=== PATIENT | female | born 1955 | race Caucasian/White ===

== ENCOUNTER 2019-08-24 22:51 | Inpatient (IN) ==
--- NOTE | 2019-08-24 23:06 | PROVIDER DOCUMENTATION ---
HPI-General Adult - General Chief Complaint: Seizure Stated Complaint: seizure like activity Time Seen by Provider: 08/24/19 23:00 Source: patient Allergies/Adverse Reactions: Patient Allergies Allergy/AdvReac Type Severity Reaction Status Date / Time No Known Allergies Allergy Verified 08/24/19 22:50 Home Medications: Home Medication List Medication Instructions Recorded Confirmed Last Taken Type Amlodipine [Norvasc] 5 mg PO DAILY 06/22/19 08/25/19 Unknown History Clopidogrel [Plavix] 75 mg PO DAILY 06/22/19 08/25/19 Unknown History Levothyroxine [Synthroid] 150 mcg PO DAILY 06/22/19 08/25/19 Unknown History - History of Present Illness -Gen Adult Nature of Presenting Problems: 64 YOF PRESENTS VIA EMS CALLED BY FAMILY FOR AN EPISODE OF UNRESPONSIVENESS LASTING APROX 1 MINUTE. SHE REPORTS THAT SHE HAS HAD N/V, ABDOMINAL CRAMPING, FEVER (100.4 AT HOME) SINCE YESTERDAY AND WEAKNESS TODAY. SHE IS ALERT AND ORIENTED ON EXAM, BUT DOES APPEAR LIKE SHE FEELS UNWELL. SHE DENIES CP, SOB, DIARRHEA. Location of Pain/Injury: reports: abdomen Pain Radiation: reports: no radiation Quality of Pain: reports: cramping Severity: reports: moderate Onset/Duration: reports: 24 hours ago Timing: reports: still present Context/Activities at Onset: reports: none Modifying Factors: improves with: nothing Associated Symptoms: reports: fever/chills, nausea, vomiting, weakness Similar Symptoms Previously?: No Recently seen or treated by another doctor?: No Review of Systems - Adult - REVIEW OF SYSTEMS - ADULT Constitutional: reports: see HPI, fever, fatique. denies: no symptoms reported, chills, night sweats, weight gain, weight loss, other Eyes: reports: no symptoms reported. denies: see HPI, discharge, dry eyes, decreased vision, blurred vision, double vision, eye pain, redness, other Ears, Nose, Mouth & Throat: reports: no symptoms reported. denies: see HPI, ear discharge, ear pain, hearing loss, tinnitus, epistaxis, sinus problem, nose pain, loose teeth, mouth/dental pain, mouth swelling, hoarseness, throat pain, throat swelling, other Cardiovascular: reports: no symptoms reported. denies: see HPI, chest pain, edema, heart murmur, irregular heart rate, orthopnea, palpitations, poor circulation, PND, syncope, other Respiratory: reports: no symptoms reported. denies: see HPI, chronic cough, cough, dyspnea on exertion, excessive sputum production, hemoptysis, pleurisy, shortness of breath, wheezing, other Gastrointestinal: reports: abdominal pain, constipation, nausea, vomiting. denies: no symptoms reported, see HPI, hematemesis, diarrhea, difficulty swallowing, frequent heartburn, poor appetite, rectal bleeding, other Genitourinary: reports: no symptoms reported. denies: see HPI, dysuria, discharge, frequency, flank pain, frequent UTI's, hematuria, hesitency, incontinence, urinary retention, urgency, other Musculoskeletal: reports: muscle weakness (GENERALZED). denies: no symptoms re ported, see HPI, bone pain, back pain, frequent leg cramps, joint pain, joint swelling, muscle aches, neck pain, other Integumentary: reports: no symptoms reported. denies: see HPI, hives, hair loss, itching, mole changes, nail changes, rash, skin sores/ulcer, skin thickeni ng, other Neurological: reports: no symptoms reported. denies: see HPI, ataxia, dizziness/vertigo, headache/migraines, loss of balance, numbness, paresthesia, seizure, slurred speech, syncope, tremors, other Psychiatric: reports: no symptoms reported. denies: see HPI, anxiety, anti- depressant use, alcohol/drug dependence, depression, emotional problems, insomnia, panic attacks, suicidal thoughts, other Endocrine: reports: no symptoms reported. denies: see HPI, change in skin pigment, excessive sweating, goiter, cold intolerance, heat intolerance, increased hunger, increased thirst, polyuria, other Hematologic/Lymphatic: reports: no symptoms reported. denies: see HPI, blood clots, easy bruising, low blood count, lymphedema, prolonged bleeding, swollen lymph nodes, transfusions, other Allergic/Immunologic: reports: no symptoms reported. denies: see HPI, allergic reactions, allergic rhinitis, asthma, eczema, food allergy, frequent infections, hay fever, hives, positive PPD, urticaria, other Past History - Adult - PAST MEDICAL HISTORY-ADULT Review of Records: reports: Nursing Assessment Review, Social history reviewed & non-contributory. Major Childhood Illnesses: reports: denies history Cardiovascular: reports: HTN, hyperlipidemia Respiratory: reports: denies history Gastrointestinal: reports: denies history Obstetrical/Gynecological: reports: denies history Genitourinary: reports: denies history Musculoskeletal: reports: denies history Neurological: reports: CVA Endocrine/Immune: reports: thyroid disorder Other Conditions: reports: denies history - PRIOR SURGERIES/PROCEDURES Surgical/Procedure History: reports: appendectomy Physical Exam-General - PHYSICAL EXAM-ADULT Initial Vital Signs Reviewed: Yes - CONSTITUTIONAL General Appearance: alert, no apparent distress - EYES Eyes: PERRL/EOMI, pink conjunctivae - HEAD, EARS, NOSE, MOUTH & THROAT HENMT: normocephalic/atraumatic, moist mucous membranes, normal ENT inspection - NECK Neck: non-tender, full range of motion, supple - RESPIRATORY Respiratory: chest non-tender, lungs clear, normal breath sounds, no pleuratic chest pain, no respiratory distress, no accessory muscle use - CARDIOVASCULAR Cardiovascular: normal peripheral pulses, no edema, no gallop, tachycardia - GASTROINTESTINAL (ABDOMEN) Abdominal Exam: normal bowel sounds, non tender, soft - LYMPHATIC Lymphatic: no adenopathy - MUSCULOSKELETAL Back Exam: normal inspection, no CVA tenderness, no vertebral tenderness Extremity: normal range of motion, non-tender. negative: normal gait (UNSTEADY) - SKIN Integumentary: normal color, normal turgor, warm/dry - NEUROLOGIC Neurologic: grossly normal - PSYCHIATRIC Psych/Mental Status: normal mood/affect, oriented x 3 Progress - PLAN OF CARE/RESULTS Progress/Plan/Lab Results: Vital Signs - 8 hr 08/24/19 22:44 Temperature 98.2 F Pulse Rate 114 H Respiratory Rate 20 Blood Pressure 149/53 O2 Sat by Pulse Oximetry 92 L Orders Category Date Time Status Finger Stick Blood Sugar (ED) DIRECTED Care 08/24/19 22:[address] HEAD W/O CONTRAST [CT] Stat Exams 08/24/19 22:53 Ordered cxr [CHEST-PORTABLE] [RAD] Stat Exams 08/24/19 22:54 Ordered CBC WITH ELECTRONIC DIFF [HEME] Stat Lab 08/24/19 22:52 Uncollected COMPREHENSIVE METABOLIC PANEL [CHEM] Stat Lab 08/24/19 22:52 Uncollected PT [PROTIME WITH INR] [COAG] Stat Lab 08/24/19 22:52 Uncollected PTT [COAG] Stat Lab 08/24/19 22:52 Uncollected UA NIMS W/REFLEX CULT [URINALYSIS] Stat Lab 08/24/19 22:52 Uncollected URINE DRUG SCREEN PL Stat Lab 08/24/19 22:52 Uncollected Result Diagrams: 08/25/19 02:15 08/24/19 23:15 - CT/MRI 1 CT Study: Abdomen, Pelvis CT Results: inflammatory change around sigmoid c/w diverticulitis,cystic lesions also 2 CT Study: Head CT Results: NAD - CONSULTS/PCP/HOSPITALIST Notification #1 *Consult/PCP/Hospitalist*: Dr. Pedroza, surgeon Time Discussed: 02:40 Reason/Comments: recommend admit to hospitalist at [facility] with surgical consultation #2 Consult: Dr Rushing,hospitalist Time Discussed: 02:50 Reason/Comments: recommend transfer to [facility] hospitalist service #3 Consult: Dr. Carodso Time Discussed: 02:45 Reason/Comments: transfer to [facility] if Dr Rushing recommends,accepts patient Consult Disposition: Admit Departure - Departure Date of Disposition Decision: 08/25/19 Time of Disposition Decision: 03:04 DIAGNOSIS: Abnormal abdominal CT scan, Observed seizure-like activity Leukocytosis Qualifiers: Leukocytosis type: unspecified Qualified Code(s): D72.829 - Elevated white blood cell count, unspecified Abdominal pain Qualifiers: Abdominal location: lower abdomen, unspecified Qualified Code(s): R10.30 - Lower abdominal pain, unspecified Disposition: ADMITTED INPATIENT 09 Certified Medical Emergency: Emergent Condition: Stable - Critical Care Note This patient required my direct & personal management of CC.: No Attestation - Physician/ PARTH Attestation Patient care was provided by Advanced Practice Provider:: Yes Advanced Practice Provider documentation review:: The Mid-level provider documentation, treatment plan and medical decision making was reviewed by the physician who agrees with all treatment and medical decision making by the P. The physician spent face to face time with patient:: Yes Advanced Practice Provider documentation review:: Supervising physician onsite and consulted in the evaluation and care of this patient. The physician did have a face to face encounter with the patient.
[2019-08-24 23:35] LABS: BASO# 0.04 X1000 (0.0-0.2); BASO% 0.1 % (0.0-0.8); EOS# 0.02 X1000 (0.0-0.7); EOS% 0.1 % (0.0-10.0); HEMOGLOBIN 11.9 g/dL (12.0-16.0); IMM GRAN# 0.25 X1000 (0.0-0.04); IMM GRAN% 0.8 % (0.0-0.5); LYMPH# 0.96 X1000 (1.2-3.4); MCH 27.2 PG (27-31); MCHC 32.2 g/dL (33-37); MCV 84.5 FL (81-99); MONO# 2.08 X1000 (0.11-0.59); MONO% 6.5 % (1.7-9.3); MPV 10.5 FL (7.4-10.4); NEUT# 28.54 X1000 (1.4-6.5); NEUT% 89.5 % (42.2-75.2); PLT 451 X1000 (130-400); RBC 4.38 XMIL (4.2-5.4); RDW 13.7 % (11.5-14.5); WBC 31.89 X1000 (4.8-10.8)
[2019-08-24 23:40] LABS: INR 0.95; PROTIME 13.2 Seconds (11.0-16.0)
[2019-08-24 23:41] LABS: PTT 31.7 Seconds (22.3-41.8)
[2019-08-24 23:43] LABS: AGAP 16; ALBUMIN 3.4 g/dL (3.5-5.0); ALKALINE PHOSPHATASE 110 U/L (32-104); BUN 18 mg/dL (8-22); CALCIUM 8.9 mg/dL (8.8-10.2); CHLORIDE 101 mmol/L (98-107); COSMO 280; CREATININE 0.8 mg/dL (0.5-0.9); ESTIMATED GFR > 60; GLUCOSE 176 mg/dL (70-104); GOT 16 U/L (10-30); GPT 10 U/L (10-36); SODIUM 137 mmol/L (136-145); TCO2 21 mmol/L (25-35); TOTAL PROTEIN 7.4 g/dL (6.3-8.3)
[2019-08-24] MEDS ORDERED: VANCOMYCIN 1 GM/NS 1 GM/250 ML IVPB IV ONE (23:49)
[2019-08-24] MEDS ORDERED: ZOSYN 3.375 GM in NS 50 ML IV ONE (23:49)
[2019-08-25 00:48] LABS: URINE SOURCE CLEAN CATCH
[2019-08-25 00:54] LABS: BILIRUBIN URINE NEGATIVE (NEGATIVE); BLOOD URINE NEGATIVE (NEGATIVE); COLOR YELLOW; GLUCOSE URINE NEGATIVE (NEGATIVE); KETONE URINE NEGATIVE (NEGATIVE); LEUKOCYTES URINE NEGATIVE (NEGATIVE); NITRITE URINE NEGATIVE (NEGATIVE); PH URINE 5.5; PROTEIN URINE TRACE mg/dL (NEGATIVE); SP GRAVITY URINE 1.022; TURBIDITY URINE CLEAR (CLEAR); UR EPITHELIAL CELLS <10 /HPF (<10); URINE BACTERIA NEGATIVE /HPF; URINE RBC <10 /HPF (<10); URINE WBC <10 /HPF (<10); UROBILINOGEN URINE NORMAL (NORMAL)
[2019-08-25 01:07] LABS: MAGNESIUM 1.4 mg/dL (1.5-2.7)
[2019-08-25 01:08] LABS: UR AMPHETAMINES QUAL NONE DETECTED (NONE DETECT); UR BARBITUATES QUAL NONE DETECTED (NONE DETECT); UR BENZODIAZEPIN QUAL NONE DETECTED (NONE DETECT); UR CANNABINOIDS QUAL NONE DETECTED (NONE DETECT); UR COCAINE QUAL NONE DETECTED (NONE DETECT); UR METHADONE QUAL NONE DETECTED (NONE DETECT); UR METHAMPHETAMINE QUAL NONE DETECTED (NONE DETECT); UR OPIATES QUAL NONE DETECTED (NONE DETECT); UR OXYCODONE QUAL NONE DETECTED (NONE DETECT); UR PCP QUAL NONE DETECTED (NONE DETECT); UR PROPOXYPHENE QUAL NONE DETECTED (NONE DETECT); UR TCA QUAL NONE DETECTED (NONE DETECT)
[2019-08-25 01:24] LABS: INFLUENZA A NEGATIVE (NEGATIVE); INFLUENZA B NEGATIVE (NEGATIVE)
[2019-08-25 01:35] LABS: BASO# 0.03 X1000 (0.0-0.2); BASO% 0.1 % (0.0-0.8); EOS# 0.01 X1000 (0.0-0.7); HEMATOCRIT 33.6 % (37.0-47.0); HEMOGLOBIN 10.7 g/dL (12.0-16.0); IMM GRAN# 0.25 X1000 (0.0-0.04); IMM GRAN% 0.8 % (0.0-0.5); LYMPH# 1.08 X1000 (1.2-3.4); LYMPH% 3.3 % (20.5-51.1); MCHC 31.8 g/dL (33-37); MCV 84.6 FL (81-99); MONO# 2.35 X1000 (0.11-0.59); MONO% 7.2 % (1.7-9.3); MPV 10.1 FL (7.4-10.4); NEUT# 28.93 X1000 (1.4-6.5); NEUT% 88.6 % (42.2-75.2); PLT 396 X1000 (130-400); RBC 3.97 XMIL (4.2-5.4); RDW 13.6 % (11.5-14.5); WBC 32.65 X1000 (4.8-10.8)
[2019-08-25 02:47] LABS: BASO# 0.03 X1000 (0.0-0.2); BASO% 0.1 % (0.0-0.8); EOS# 0.01 X1000 (0.0-0.7); HEMATOCRIT 34.3 % (37.0-47.0); IMM GRAN# 0.25 X1000 (0.0-0.04); IMM GRAN% 0.8 % (0.0-0.5); LYMPH# 1.09 X1000 (1.2-3.4); LYMPH% 3.4 % (20.5-51.1); MCH 27.1 PG (27-31); MCHC 32.1 g/dL (33-37); MCV 84.5 FL (81-99); MONO# 2.27 X1000 (0.11-0.59); MPV 10.4 FL (7.4-10.4); NEUT# 28.87 X1000 (1.4-6.5); NEUT% 88.7 % (42.2-75.2); PLT 400 X1000 (130-400); RBC 4.06 XMIL (4.2-5.4); RDW 13.7 % (11.5-14.5); WBC 32.52 X1000 (4.8-10.8)
[2019-08-25] MEDS ORDERED: NS 1,000 ML IV ONE (03:04)
[2019-08-25] MEDS ORDERED: VANCOMYCIN IV PER PHARMACY MISC SCH (03:15)
[2019-08-25] MEDS: ZOSYN 3.375 GM in NS 50 ML IV SCH ×3 (05:36→17:49)
[2019-08-25] MEDS ORDERED: VANCOMYCIN 2,150 MG in NS 500 ML IV ONE (06:00)
[2019-08-25] MEDS ORDERED: VANCOMYCIN 1,150 MG in NS 250 ML IV ONE (06:03)
--- NOTE | 2019-08-25 06:07 | Diag Imaging Result Doc PS360 ---
EXAM: CHEST-PORTABLE HISTORY: LOW SATS TECHNIQUE: Single view COMPARISON: 08/01/2018 FINDINGS: The lungs are well expanded. The heart is not enlarged. The vessels are not distended. There are no infiltrates. No effusion identified. IMPRESSION: Negative exam. Electronically signed by Carroll Escobedo 08/25/2019 6:04 AM
--- NOTE | 2019-08-25 07:40 | Diag Imaging Result Doc PS360 ---
EXAM: CT HEAD W/O CONTRAST HISTORY: SEIZURE, EPISODE OF UNRESPONSIVENESS TECHNIQUE: CT head without contrast COMPARISON: 08/02/2018 FINDINGS: No parenchymal hemorrhage. No epidural or subdural hematoma. No subarachnoid hemorrhage. Mild chronic microvascular ischemic changes. Mild atrophy. No mass identified on this noncontrasted exam. No hydrocephalus. No sinus opacification. IMPRESSION: 1. No hemorrhage. 2. Mild atrophy with chronic microvascular ischemic changes. A follow-up MRI may be beneficial. A preliminary report was given at 11:47 PM on 08/24/2019. This exam was performed using automated exposure control, adjustment of mA or kV according to patient size, and/or use of iterative reconstruction technique. Electronically signed by Carroll Escobedo 08/25/2019 7:38 AM
--- NOTE | 2019-08-25 08:37 | Diag Imaging Result Doc PS360 ---
EXAM: CT THORAX/ABD/PELVIS W/CON HISTORY: FEVER, WBC, COUGH, ABD PAIN TECHNIQUE: 1. CT chest with intravenous contrast 2. CT abdomen and pelvis with intravenous contrast COMPARISON: None. FINDINGS: Chest: No pleural effusions. No cardiomegaly. There are coronary artery calcifications. No aortic aneurysm or dissection. No enlarged lymph nodes. Moderate sized hiatal hernia. No infiltrates. No bronchiectasis. No pneumothoraces. Abdomen and pelvis: There is fatty infiltration of the liver. No calcified gallstones or adjacent inflammation. Normal spleen, pancreas, adrenal glands, and kidneys. No hydronephrosis. Small distal abdominal aortic aneurysm measuring 3.3 cm. Prominent atherosclerosis. There is wall thickening to the sigmoid colon with adjacent inflammation. There are scattered diverticula. Irregular fluid collection in the left adnexa measuring approximately 2.3 x 4.8 cm. There are also fluid areas in the right adnexa measuring up to 2.3 cm. IMPRESSION: Chest: No acute abnormality Abdomen and pelvis: 1. Sigmoid diverticulitis 2. Adjacent abscesses or ovarian cysts. 3. Hiatal hernia 4. There is fatty infiltration of the liver 5. Small abdominal aortic aneurysm. Prominent atherosclerosis. 6. Constipation A preliminary report was given at 1:54 AM This exam was performed using automated exposure control, adjustment of mA or kV according to patient size, and/or use of iterative reconstruction technique. Electronically signed by Carroll Escobedo 08/25/2019 8:34 AM
[2019-08-25] MEDS: SYNTHROID PO SCH (10:15)
[2019-08-25] MEDS: PROTONIX IV SCH (10:15)
[2019-08-25] MEDS: SODIUM CHLORIDE 0.9% INJ SCH (10:15)
[2019-08-25] MEDS: MYCOSTATIN POWDER TOP SCH ×2 (10:15→21:30)
[2019-08-25 10:25] LABS: AGAP 16; BUN 16 mg/dL (8-22); CALCIUM 8.5 mg/dL (8.8-10.2); CHLORIDE 102 mmol/L (98-107); COSMO 283; CREATININE 0.7 mg/dL (0.5-0.9); ESTIMATED GFR > 60; GLUCOSE 140 mg/dL (70-104); MAGNESIUM 1.6 mg/dL (1.5-2.7); POTASSIUM 3.9 mmol/L (3.5-5.1); SODIUM 140 mmol/L (136-145); TCO2 22 mmol/L (25-35)
--- NOTE | 2019-08-25 10:33 | HISTORY AND PHYSICAL ---
PRIMARY CARE PROVIDER: Dr. Peter Bedolla. DATE AND TIME: 08/25/2019 at 0800. CHIEF COMPLAINT: Syncopal episode, as well as abdominal pain and vomiting. HISTORY OF PRESENT ILLNESS: Ms. Stiles is a 64-year-old female who reports that for a couple of weeks now, she has been having lots of indigestion and nausea. She states she has vomited a couple times, though it has been more the nausea. She states that yesterday, which would be 08/24/2019, she did begin having lower abdominal pain. She reports this was all across her lower abdomen in the right and left quadrants. She does have some tenderness upon palpation in this area. She states that she did have a few episodes of nausea and vomiting yesterday. She denies any diarrhea. She actually states that she has been slightly constipated. She did have a bowel movement reportedly this morning once she arrived to [facility], though prior to this, she states that though she did have a bowel movement yesterday, it was only a small amount, and it has been kind of hard, round stools. She states that she had been laying down in the bed, and went to get up with the assistance of her walker, and when she went to stand up, the patient did have a syncopal episode and fell back on the bed. Her son was reportedly helping her at the time, though her son told her that he thought she was having a seizure, though did not report any type of seizure-like activity as far as shaking-type motion. He just states that she had her eyes open and was staring off and would not respond to him. The patient states that once she did come back to, she did remember everything from that point on, though she did not remember passing out. She states that she did ambulate down the hallway with the assistance of her walker, and out the door to the ambulance. Though she denies any body aches or chills, she does report that she has been running a low-grade fever over the past few days. The patient denies any headache, dizziness, or feeling lightheaded prior to her syncopal episode. She denies any chest pain, shortness of breath, or cough. She denies any dysuria or urinary frequency. The patient does have some chronic arthritic pain, which she states is worse in her pelvis and right arm, that she takes Aleve daily for, up to twice a day she states, though denies any other new pain, numbness, tingling, or swelling in the extremities. The patient does have some difficulty raising her right arm all the way up, though this is secondary to a shoulder issue she has been having. This is not of new onset, and has been ongoing for quite some time. She has equal muscle strength in hand grasps bilaterally. She is not reporting any numbness or tingling. She had no facial droop noted. She is alert and oriented to person, place, time, and situation. Upon evaluation in the ER at [facility], she was noted to have leukocytosis with a white blood cell count of 32,520. CK was 23. Troponin was less than 0.01. Initial plasma lactate was 2, with a repeat of 0.9. She also did have a magnesium level of 1.4, though this was drawn at 11:00 last night, and the patient did not arrive in our facility until 6 a.m. We are going to repeat this labs to recheck her electrolytes, and will treat any abnormalities. She did have a CT of the head without contrast, which showed no hemorrhage. There was some mild atrophy with chronic microvascular ischemic changes. Chest x-ray showed no acute abnormalities. CT abdomen and pelvis did show [id number] inflammatory changes within the pelvis surrounding the sigmoid colon and ovaries. This may represent sigmoid colon diverticulitis. There were also some cystic lesions present in the left and right adnexa, adjacent to the sigmoid colon. There was concern for questionable development of abscess. Dr. Pedroza with Surgery was consulted by Dr. Caal. The patient was transferred to [facility] for admission, treatment for diverticulitis, and to be evaluated by Surgery for her abnormal CT findings. REVIEW OF SYSTEMS: A 14-point review of systems was conducted with the patient, and all were negative, except for pertinent positives mentioned in the above HPI. PAST MEDICAL HISTORY: 1. Hypertension. 2. Hyperlipidemia. 3. Hypothyroidism. 4. Gout. 5. History of previous CVA with an MRI from 07/2018 that showed a lacunar infarct at the head of the caudate nucleus on the left, and two additional lacunar infarcts on the left parietal white matter. 6. Arthritis, which the patient states she takes Aleve daily for pain related to this. 7. The patient also does have pelvic organ prolapse and does use a vaginal pessary. PAST SURGICAL HISTORY: 1. Appendectomy at age 7. 2. Tubal ligation. SOCIAL HISTORY: The patient states that her son does live with her. She is a former smoker. She did smoke no more than 1 pack per day for 25 to 30 years, though quit smoking 2 years ago. There is no known alcohol or illicit drug use. FAMILY HISTORY: Positive for her mother having history of hypertension and stroke. Her father had a history of heart disease and did pass away from a suspected myocardial infarction at age 59. ALLERGIES: The patient has no known allergies. HOME MEDICATIONS: 1. Norvasc 5 mg p.o. daily. 2. Plavix 75 mg p.o. daily. 3. Levothyroxine 150 mcg p.o. daily. 4. Oyjf-ete-iwcyoef Aleve up to twice daily. DIAGNOSTIC DATA: White blood cell count is 32,520, hemoglobin is 11, hematocrit 34.3, platelet count is 400,000. PT 13.2, INR 0.95, PTT is 31.7. Sodium 137, potassium 4, chloride 101, serum bicarb is 21, BUN 18, creatinine 0.8, GFR greater than 60, glucose 176, calcium 8.9, magnesium 1.4. Liver function tests within normal limits, except for alkaline phosphatase is elevated at 110. CK is 23. Troponin is less than 0.01. Urinalysis was obtained via clean catch and was positive for trace protein. It was negative for glucose, ketones, blood, nitrites, leukocytes, white blood cells, or bacteria. Urine drug screen was negative. Influenza screen was negative. CT of the head showed no hemorrhage. There was mild atrophy with chronic microvascular ischemic changes. The radiologist noted that a followup MRI may be beneficial. Chest x-ray did not show any acute abnormalities as per Radiology. CT chest, abdomen, and pelvis did not show any pneumonia or pulmonary abnormalities, though the Radiology impression did note that there were [id number] inflammatory changes within the pelvis surrounding the sigmoid colon and ovaries. The sigmoid colon wall is thickened. There are small diverticula within the region. This may represent a sigmoid colon diverticulitis. Radiologist also noted that there are cystic lesions present within the left and right adnexa, adjacent to the sigmoid colon. These could potentially be on the adjacent ovaries. Alternatively, however, could be developing abscesses. Given the patient's postmenopausal state, the radiologist did recommend pelvic ultrasound for further characterization of these potential adnexal masses. PHYSICAL EXAMINATION: VITAL SIGNS: Temperature 99.4 degrees, heart rate 83, respirations 16, blood pressure is 110/48, with a MAP of 63, oxygen saturation is 97% on room air. GENERAL: Ms. Stiles is a very pleasant, 64-year-old, female. She was resting in the inpatient bed. She was in no acute distress. She was awake, alert, and able to answer questions appropriately. HEENT: Head is atraumatic, normocephalic. Pupils are equal, round, reactive to light, were 3 mm bilaterally and brisk. Oral mucosa is moist. Oropharynx is clear. NECK: Supple. Trachea midline. CARDIOVASCULAR: The patient has S1, S2 present. No murmurs, gallops, rubs appreciated, with a regular rate and rhythm. PULMONARY: The patient has symmetrical chest expansion bilaterally. Lung sounds are clear to auscultation in bilateral full huynh. ABDOMEN: Soft. Does not appear to be overtly distended, though the patient does have a protuberant abdomen noted. She reports tenderness upon palpation in the right and left lower quadrants. Bowel sounds are present in all 4 quadrants and were normoactive. EXTREMITIES: No cyanosis or edema noted. Pulse, motor, and sensory were intact in all extremities. Radial and pedal pulses were 2+ bilaterally. INTEGUMENTARY: The patient's skin is pink, warm, and dry, though she does have cutaneous candidiasis in her intertriginous areas under her bilateral breasts and on her abdomen. NEUROLOGICAL: The patient is alert and oriented to person, place, time, and situation. She has equal hand grasps and muscle strength bilaterally. She has no facial droop noted. She denies any numbness or tingling. Pupils are 3 mm bilaterally, equal, round, reactive to light, and were brisk. ASSESSMENT AND PLAN: 1. Diverticulitis. For further treatment of this, we have placed the patient on antibiotic coverage of Zosyn and vancomycin. Blood cultures have been obtained. She will be nothing by mouth at this time given that there were questionable cystic lesions and questionable abscesses noted on her abdominal CT. We will await Dr. Pedroza's evaluation and further recommendations for management. 2. Questionable cystic lesion and questionable developing abscesses. The patient's abdomen and pelvis CT did show cystic lesions present within the left and right adnexa, adjacent to the sigmoid colon. They did note that this could potentially be adjacent to the ovaries, though alternatively, however, could be developing abscesses. They did recommend pelvic ultrasound for further characterization of these potential adnexal masses. We are going to await Dr. Pedroza's evaluation and further recommendations at this time to see if he would like her to have a pelvic ultrasound. We will continue to follow. 3. Leukocytosis. This is likely secondary to her diverticulitis, as well as the patient did have some reported nausea and vomiting. This could, in addition, be somewhat reactive as well. We will continue to follow closely. We will continue with antibiotics as mentioned above. Blood cultures have been obtained. We will continue to rule out any other infectious process. 4. Nausea and vomiting. We have ordered some intravenous hydration as well as as needed antiemetics. 5. Syncope. From the way the patient described this, especially given that she has had nausea and vomiting, it does sound as though she had orthostatic hypotension that may have led up to her syncope. We are going to order some orthostatic vital signs. She did not have an electrocardiogram since arriving to our facility. We will go ahead and get an electrocardiogram this morning. She is not reporting any chest pain, though we will go ahead and repeat cardiac enzymes as well. We have also ordered an echocardiogram. Her CT of the head did not show any acute findings, though the patient does have a history of having lacunar infarcts. If there is still a concern for possible neurological involvement, an MRI may need to be performed given her history of stroke. We will await further evaluation and results of diagnostic studies, and continue to follow. 6. History of cerebrovascular accident in the past. We are going to hold her Plavix at this time until she is evaluated by surgery. 7. Cutaneous candidiasis. We have ordered for the patient to have nystatin powder twice daily as directed to affected intertriginous areas. 8. Deep vein thrombosis prophylaxis will be provided with sequential compression devices. She has been placed on the medical floor with telemetry. She will have vital signs and neurological checks every 4 hours. She will be nothing by mouth at this time. We are going to repeat BMP and magnesium just to check and make sure that all of her electrolytes are within normal limits. We will treat any abnormalities if necessary. Further orders and recommendations pending hospital course, diagnostic studies, and physician evaluation. Dictated by CHELSEY Blair for Oral Arredondo MD cc: Oral Arredondo MD Patient presenting with syncope, abdominal pain and vomiting. Noted to have sigmoid colon diverticulitis. I concur with the assessment and plan of the [employer]. Dr. Arredondo. [facility]
--- NOTE | 2019-08-25 11:12 | PROGRESS NOTE ---
DATE: 08/25/2019 SUBJECTIVE: Today, Ms. Stiles refers to be doing fairly okay. No new complaints. She was initially seen at [facility] yesterday, and transferred over here for higher level of care. This morning, she still refers some lower abdominal discomfort and some nauseation, but no vomiting. OBJECTIVE: Vital Signs: Blood pressure is 110/48, pulse of 83, respirations 16, temperature is 99.4 degrees. General: Ms. Stiles is a 64-year-old, mildly obese, female. BMI 36.3. She is in bed. No distress. HEENT: Mucosa is pink and moist. Anicteric. Acyanotic. Neck: Supple. Chest: Clear to auscultation. Cardiovascular: Regular rate and rhythm. There were no murmurs, no rubs, no gallop. GI: Abdomen is soft, minimally tender in the lower abdomen, but there was not any rebound or guarding. : Not examined. Extremities: No pedal edema. However, the feet were remarkably dirty. HOT STRIP MILL INSPECTOR: The patient was awake, alert, and oriented. There is no focal deficit. LABORATORY DATA: WBC is 33.52, hemoglobin is 11.0, platelet count of 400,000. Chemistry is also reviewed and completely within normal range. IMAGING STUDIES OF SIGNIFICANCE: CT scan which was done yesterday that shows sigmoid diverticulitis with adjacent abscess or ovarian cyst. There was also hiatal hernia, fatty infiltration of the liver. There is a small abdominal aortic aneurysm, prominent atherosclerosis, and constipation. ASSESSMENT: 1. Syncope at home, presumably orthostatic hypotension from intravascular depletion. 2. Sigmoid diverticulitis with adjacent inflammation versus an adnexal abscess. The patient is currently on antibiotics. Cultures have been done. Both Surgery and Obstetrics/Gynecology have been consulted. 3. Severe prominent intra-abdominal aortic atherosclerosis with small aneurysm noted. 4. Constipation. We will start the patient on bowel regimen. 5. Intrauterine pessary noted. Obstetrics/Gynecology will remove the pessary, and then an intravaginal ultrasound will be done to delineate the pelvic gynecological organs very well. For now, Ms. Stiles will continue to be on the current antimicrobial coverage, including Zosyn and vancomycin, hydration, and we will re-evaluate her with the report of the ultrasound. cc: Chau Douglas MD
--- NOTE | 2019-08-25 11:47 | OB/GYN PROGRESS NOTE ---
Progress Note INFUSION NURSE - . Patient Problems: Current Active Problems Problem Status Onset Leukocytosis Acute Abdominal pain Acute Abnormal abdominal CT scan Acute Observed seizure-like activity Acute INFUSION NURSE Progress Note: Vital Signs - 24 hr 08/24/19 22:44 08/25/19 01:52 08/25/19 03:07 Temperature 98.2 F Pulse Rate 114 H 89 85 Respiratory Rate 20 18 Blood Pressure 149/53 111/69 O2 Sat by Pulse Oximetry 92 L 95 08/25/19 05:07 08/25/19 07:36 Temperature 99.8 F H 99.4 F Pulse Rate 86 83 Respiratory Rate 20 16 Blood Pressure 137/64 110/48 O2 Sat by Pulse Oximetry 96 97 Laboratory Results - last 24 hr 08/24/19 08/24/19 08/24/19 23:15 23:15 23:15 WBC 31.89 H RBC 4.38 Hgb 11.9 L Hct 37.0 MCV 84.5 MCH 27.2 MCHC 32.2 L RDW Std Deviation 13.7 Plt Count 451 H MPV 10.5 H Immature Gran % (Auto) 0.8 H Neut % (Auto) 89.5 H Lymph % (Auto) 3.0 L [place] % (Auto) 6.5 Eos % (Auto) 0.1 Baso % (Auto) 0.1 Immature Gran # (Auto) 0.25 H Neut # (Auto) 28.54 H Lymph # (Auto) 0.96 L [place] # (Auto) 2.08 H Eos # (Auto) 0.02 Baso # (Auto) 0.04 PT 13.2 INR 0.95 PTT (Actin FS) 31.7 Sodium 137 Potassium 4.0 Chloride 101 Carbon Dioxide 21 L Anion Gap 16 BUN 18 Creatinine 0.8 Estimated GFR/1.73 m2 > 60 BUN/Creatinine Ratio 23 Glucose 176 H POC Glucose Calculated Osmolality 280 Calcium 8.9 Magnesium Total Bilirubin 0.60 AST 16 ALT 10 Alkaline Phosphatase 110 H Creatine Kinase Troponin T Total Protein 7.4 Albumin 3.4 L Globulin 4.0 Albumin/Globulin Ratio 1.0 Plasma Lactate Urine Source Urine Color Urine Turbidity Urine pH Ur Specific [place] Urine Protein Ur Glucose (Stick) Ur Ketones (Stick) Urine Blood Urine Nitrite Urine Bilirubin Urobilinogen Dipstick Urine Leukocytes Urine WBC (Auto) Urine RBC (Auto) U Epithel Cells (Auto) Urine Bacteria (Auto) Urine Opiates Screen Ur Oxycodone Screen Urine Methadone Screen U Propoxyphene Qual Ur Barbituates Screen Ur Tricyclics Screen Ur Phencyclidine Scrn Ur Amphetamines Screen U Methamphetamines Scrn U Benzodiazepines Scrn Urine Cocaine Screen U Cannabinoids Screen Influenza A (Rapid) Influenza B (Rapid) 08/24/19 08/24/19 08/24/19 23:15 23:15 23:15 WBC RBC Hgb Hct MCV MCH MCHC RDW Std Deviation Plt Count MPV Immature Gran % (Auto) Neut % (Auto) Lymph % (Auto) [place] % (Auto) Eos % (Auto) Baso % (Auto) Immature Gran # (Auto) Neut # (Auto) Lymph # (Auto) [place] # (Auto) Eos # (Auto) Baso # (Auto) PT INR PTT (Actin FS) Sodium Potassium Chloride Carbon Dioxide Anion Gap BUN Creatinine Estimated GFR/1.73 m2 BUN/Creatinine Ratio Glucose POC Glucose Calculated Osmolality Calcium Magnesium 1.4 L Total Bilirubin AST ALT Alkaline Phosphatase Creatine Kinase 23 L Troponin T < 0.010 Total Protein Albumin Globulin Albumin/Globulin Ratio Plasma Lactate Urine Source Urine Color Urine Turbidity Urine pH Ur Specific [place] Urine Protein Ur Glucose (Stick) Ur Ketones (Stick) Urine Blood Urine Nitrite Urine Bilirubin Urobilinogen Dipstick Urine Leukocytes Urine WBC (Auto) Urine RBC (Auto) U Epithel Cells (Auto) Urine Bacteria (Auto) Urine Opiates Screen Ur Oxycodone Screen Urine Methadone Screen U Propoxyphene Qual Ur Barbituates Screen Ur Tricyclics Screen Ur Phencyclidine Scrn Ur Amphetamines Screen U Methamphetamines Scrn U Benzodiazepines Scrn Urine Cocaine Screen U Cannabinoids Screen Influenza A (Rapid) NEGATIVE Influenza B (Rapid) NEGATIVE 08/25/19 08/25/19 08/25/19 00:30 00:40 00:40 WBC RBC Hgb Hct MCV MCH MCHC RDW Std Deviation Plt Count MPV Immature Gran % (Auto) Neut % (Auto) Lymph % (Auto) [place] % (Auto) Eos % (Auto) Baso % (Auto) Immature Gran # (Auto) Neut # (Auto) Lymph # (Auto) [place] # (Auto) Eos # (Auto) Baso # (Auto) PT INR PTT (Actin FS) Sodium Potassium Chloride Carbon Dioxide Anion Gap BUN Creatinine Estimated GFR/1.73 m2 BUN/Creatinine Ratio Glucose POC Glucose Calculated Osmolality Calcium Magnesium Total Bilirubin AST ALT Alkaline Phosphatase Creatine Kinase Troponin T Total Protein Albumin Globulin Albumin/Globulin Ratio Plasma Lactate 2.0 Urine Source CLEAN CATCH Urine Color YELLOW Urine Turbidity CLEAR Urine pH 5.5 Ur Specific [place] 1.022 Urine Protein TRACE A Ur Glucose (Stick) NEGATIVE Ur Ketones (Stick) NEGATIVE Urine Blood NEGATIVE Urine Nitrite NEGATIVE Urine Bilirubin NEGATIVE Urobilinogen Dipstick NORMAL Urine Leukocytes NEGATIVE Urine WBC (Auto) <10 Urine RBC (Auto) <10 U Epithel Cells (Auto) <10 Urine Bacteria (Auto) NEGATIVE Urine Opiates Screen NONE DETECTED Ur Oxycodone Screen NONE DETECTED Urine Methadone Screen NONE DETECTED U Propoxyphene Qual NONE DETECTED Ur Barbituates Screen NONE DETECTED Ur Tricyclics Screen NONE DETECTED Ur Phencyclidine Scrn NONE DETECTED Ur Amphetamines Screen NONE DETECTED U Methamphetamines Scrn NONE DETECTED U Benzodiazepines Scrn NONE DETECTED Urine Cocaine Screen NONE DETECTED U Cannabinoids Screen NONE DETECTED Influenza A (Rapid) Influenza B (Rapid) 08/25/19 08/25/19 08/25/19 01:26 01:39 02:15 WBC 32.65 H 32.52 H RBC 3.97 L 4.06 L Hgb 10.7 L 11.0 L Hct 33.6 L 34.3 L MCV 84.6 84.5 MCH 27.0 27.1 MCHC 31.8 L 32.1 L RDW Std Deviation 13.6 13.7 Plt Count 396 400 MPV 10.1 10.4 Immature Gran % (Auto) 0.8 H 0.8 H Neut % (Auto) 88.6 H 88.7 H Lymph % (Auto) 3.3 L 3.4 L [place] % (Auto) 7.2 7.0 Eos % (Auto) 0.0 0.0 Baso % (Auto) 0.1 0.1 Immature Gran # (Auto) 0.25 H 0.25 H Neut # (Auto) 28.93 H 28.87 H Lymph # (Auto) 1.08 L 1.09 L [place] # (Auto) 2.35 H 2.27 H Eos # (Auto) 0.01 0.01 Baso # (Auto) 0.03 0.03 PT INR PTT (Actin FS) Sodium Potassium Chloride Carbon Dioxide Anion Gap BUN Creatinine Estimated GFR/1.73 m2 BUN/Creatinine Ratio Glucose POC Glucose 136 H Calculated Osmolality Calcium Magnesium Total Bilirubin AST ALT Alkaline Phosphatase Creatine Kinase Troponin T Total Protein Albumin Globulin Albumin/Globulin Ratio Plasma Lactate Urine Source Urine Color Urine Turbidity Urine pH Ur Specific [place] Urine Protein Ur Glucose (Stick) Ur Ketones (Stick) Urine Blood Urine Nitrite Urine Bilirubin Urobilinogen Dipstick Urine Leukocytes Urine WBC (Auto) Urine RBC (Auto) U Epithel Cells (Auto) Urine Bacteria (Auto) Urine Opiates Screen Ur Oxycodone Screen Urine Methadone Screen U Propoxyphene Qual Ur Barbituates Screen Ur Tricyclics Screen Ur Phencyclidine Scrn Ur Amphetamines Screen U Methamphetamines Scrn U Benzodiazepines Scrn Urine Cocaine Screen U Cannabinoids Screen Influenza A (Rapid) Influenza B (Rapid) 08/25/19 08/25/19 08/25/19 03:35 09:34 09:34 WBC RBC Hgb Hct MCV MCH MCHC RDW Std Deviation Plt Count MPV Immature Gran % (Auto) Neut % (Auto) Lymph % (Auto) [place] % (Auto) Eos % (Auto) Baso % (Auto) Immature Gran # (Auto) Neut # (Auto) Lymph # (Auto) [place] # (Auto) Eos # (Auto) Baso # (Auto) PT INR PTT (Actin FS) Sodium 140 Potassium 3.9 Chloride 102 Carbon Dioxide 22 L Anion Gap 16 BUN 16 Creatinine 0.7 Estimated GFR/1.73 m2 > 60 BUN/Creatinine Ratio 23 Glucose 140 H POC Glucose Calculated Osmolality 283 Calcium 8.5 L Magnesium 1.6 Total Bilirubin AST ALT Alkaline Phosphatase Creatine Kinase 21 L Troponin T Total Protein Albumin Globulin Albumin/Globulin Ratio Plasma Lactate 0.9 Urine Source Urine Color Urine Turbidity Urine pH Ur Specific [place] Urine Protein Ur Glucose (Stick) Ur Ketones (Stick) Urine Blood Urine Nitrite Urine Bilirubin Urobilinogen Dipstick Urine Leukocytes Urine WBC (Auto) Urine RBC (Auto) U Epithel Cells (Auto) Urine Bacteria (Auto) Urine Opiates Screen Ur Oxycodone Screen Urine Methadone Screen U Propoxyphene Qual Ur Barbituates Screen Ur Tricyclics Screen Ur Phencyclidine Scrn Ur Amphetamines Screen U Methamphetamines Scrn U Benzodiazepines Scrn Urine Cocaine Screen U Cannabinoids Screen Influenza A (Rapid) Influenza B (Rapid) 08/25/19 09:34 WBC RBC Hgb Hct MCV MCH MCHC RDW Std Deviation Plt Count MPV Immature Gran % (Auto) Neut % (Auto) Lymph % (Auto) [place] % (Auto) Eos % (Auto) Baso % (Auto) Immature Gran # (Auto) Neut # (Auto) Lymph # (Auto) [place] # (Auto) Eos # (Auto) Baso # (Auto) PT INR PTT (Actin FS) Sodium Potassium Chloride Carbon Dioxide Anion Gap BUN Creatinine Estimated GFR/1.73 m2 BUN/Creatinine Ratio Glucose POC Glucose Calculated Osmolality Calcium Magnesium Total Bilirubin AST ALT Alkaline Phosphatase Creatine Kinase Troponin T < 0.010 Total Protein Albumin Globulin Albumin/Globulin Ratio Plasma Lactate Urine Source Urine Color Urine Turbidity Urine pH Ur Specific [place] Urine Protein Ur Glucose (Stick) Ur Ketones (Stick) Urine Blood Urine Nitrite Urine Bilirubin Urobilinogen Dipstick Urine Leukocytes Urine WBC (Auto) Urine RBC (Auto) U Epithel Cells (Auto) Urine Bacteria (Auto) Urine Opiates Screen Ur Oxycodone Screen Urine Methadone Screen U Propoxyphene Qual Ur Barbituates Screen Ur Tricyclics Screen Ur Phencyclidine Scrn Ur Amphetamines Screen U Methamphetamines Scrn U Benzodiazepines Scrn Urine Cocaine Screen U Cannabinoids Screen Influenza A (Rapid) Influenza B (Rapid) "EXAM: CT THORAX/ABD/PELVIS W/CON HISTORY: FEVER, WBC, COUGH, ABD PAIN TECHNIQUE: 1. CT chest with intravenous contrast 2. CT abdomen and pelvis with intravenous contrast COMPARISON: None. FINDINGS: Chest: No pleural effusions. No cardiomegaly. There are coronary artery calcifications. No aortic aneurysm or dissection. No enlarged lymph nodes. Moderate sized hiatal hernia. No infiltrates. No bronchiectasis. No pneumothoraces. Abdomen and pelvis: There is fatty infiltration of the liver. No calcified gallstones or adjacent inflammation. Normal spleen, pancreas, adrenal glands, and kidneys. No hydronephrosis. Small distal abdominal aortic aneurysm measuring 3.3 cm. Prominent atherosclerosis. There is wall thickening to the sigmoid colon with adjacent inflammation. There are scattered diverticula. Irregular fluid collection in the left adnexa measuring approximately 2.3 x 4.8 cm. There are also fluid areas in the right adnexa measuring up to 2.3 cm. IMPRESSION: Chest: No acute abnormality Abdomen and pelvis: 1. Sigmoid diverticulitis 2. Adjacent abscesses or ovarian cysts. 3. Hiatal hernia 4. There is fatty infiltration of the liver 5. Small abdominal aortic aneurysm. Prominent atherosclerosis. 6. Constipation A preliminary report was given at 1:54 AM This exam was performed using automated exposure control, adjustment of mA or kV according to patient size, and/or use of iterative reconstruction technique. Electronically signed by Carroll Escobedo 08/25/2019 8:34 AM" GYNECOLOGY CONSULT NOTE 64 yo WWF LMP age 52, with CHTN on amlodipine, previous lacunar strokes last year on Plavix, presenting with onset of abdominal pain last night and presenting to [facility] 0630 today. Initial impression is sigmoid diverticulitis with bilateral adnexal fluid collections suggesting ovarian cysts or abscesses. She has a pessary in place and Alcohol Rubber consult is requested for pessary removal prior to transvaginal pelvic sonographic examination. I discussed the case with the Hospitalist service PROCESS DEVELOPER and physician this AM. Therapy with Piperacillin and Vancomycin is underway. Alcohol Rubber Hx includes uterine prolapse and placement of a pessary 2 years ago, last checked ~. She has never taken hormone replacement therapy Surgical history includes appendectomy as a child. ROS includes diffuse low abdominal pain, nausea, nonbilious nonbloody vomiting, without fever, chills, sweats, constipation, diarrhea, dysuria, vaginal bleeding, rectal bleeding EXAM NAD, appropriate, in no apparent discomfort HEENT NC AT Chest clear to auscultation. Nl respiratory effort CVS RRR 1/6 systolic murmur Back nontender Abdomen soft, moderately tender in low quadrants, without rebound or guarding, with hypoactive bowel sounds. Pelvic: EG BUS mild atrophic change, no inflammation, lesions, discharge Vagina nontender with palpable Gelhorn pessary, removed after dislodging the base off-axis and flexing the stem. No blood or pus was visible on the pessary surface or on the examining glove Bimanual exam compromised by habitus and diffuse tenderness. Uterus with decreased mobility, difficult to outline. Left adnexal fullness suggested All Active Problems CVA (cerebral vascular accident) (Acute) Leukocytosis (Acute) Abdominal pain (Acute) Abnormal abdominal CT scan (Acute) Observed seizure-like activity (Acute) PLAN Plan of care discussed with Janna Saldaña NP and Chau Douglas MD this morning -obtain pelvic sonographic assessment of adnexal fluid collections, with consideration for surgery pending close surveillance of her response to medical management with broad spectrum antibiotics (Piperacillin and Vancomycin) -defer Gelhorn re-insertion until serial imaging, if needed, is complete Plan of care discussed and agreeable with Ms. Stiles.
--- NOTE | 2019-08-25 12:04 | Diag Imaging Result Doc PS360 ---
EXAM: CHEST-1 VIEW HISTORY: sepsis protocol TECHNIQUE: Single view COMPARISON: 08/24/2019 FINDINGS: The lungs are well expanded. The heart is not enlarged. The vessels are not distended. There are no infiltrates. No effusion identified. IMPRESSION: No pneumonia Electronically signed by Carroll Escobedo 08/25/2019 12:02 PM
[2019-08-25 12:32] LABS: INR 1.2; PROTIME 15.4 Seconds (11.0-16.0)
[2019-08-25 12:33] LABS: PTT 32.4 Seconds (22.3-41.8)
[2019-08-25 12:35] LABS: HEMOGLOBIN A1C 5.7 % (4.8-6.0)
[2019-08-25] MEDS: NS 1,000 ML IV SCH ×2 (12:37→21:30)
[2019-08-25 12:52] LABS: AGAP 16; ALB/GLOB RATIO 0.7; ALBUMIN 2.5 g/dL (3.5-5.0); ALKALINE PHOSPHATASE 96 U/L (32-104); BUN 16 mg/dL (8-22); CALCIUM 8.8 mg/dL (8.8-10.2); CHLORIDE 103 mmol/L (98-107); COSMO 285; CREATININE 0.8 mg/dL (0.5-0.9); ESTIMATED GFR > 60; GLUCOSE 138 mg/dL (70-104); GOT 11 U/L (10-30); GPT 8 U/L (10-36); POTASSIUM 3.9 mmol/L (3.5-5.1); SODIUM 141 mmol/L (136-145); TCO2 22 mmol/L (25-35); TOTAL BILIRUBIN 0.69 mg/dL (0.20-1.00); TOTAL PROTEIN 6.2 g/dL (6.3-8.3)
[2019-08-25] MEDS: ZOFRAN IV PRN (12:54)
--- NOTE | 2019-08-25 15:06 | GENERAL SURGERY CONSULTATION ---
DATE: 08/25/2019 CHIEF COMPLAINT: Lower abdominal pain. REASON FOR CONSULTATION: Diverticulitis. HISTORY OF PRESENT ILLNESS: This is a 64-year-old female no GI history. She presented with worsening abdominal pain over the last week. A CT scan was obtained in the emergency department and it showed sigmoid diverticulitis with pelvic either abscess or ovarian cyst. I was consulted. She denies any GI bleeding. Bowel function overall has been normal. She continues to have soft bowel movements. No nausea or vomiting. She was started on antibiotics. She does have a pessary and history of uterine prolapse. MEDICAL HISTORY: Hypertension, hyperlipidemia, hypothyroidism, gout, history of CVA, and arthritis. SURGICAL HISTORY: She had an appendectomy and tubal ligation. SOCIAL HISTORY: Used to smoke but quit. No alcohol and no drugs. Lives with her son. FAMILY HISTORY: Reviewed. Negative for colorectal cancer. MEDICATIONS: She takes Plavix. REVIEW OF SYSTEMS: Ten point negative, otherwise as mentioned in HPI. OBJECTIVE: General: She is afebrile, pulse 88, blood pressure 121/50, oxygen saturation 98%. General: She is alert. HEENT: No scleral icterus. Neck: No cervical mass. Cardiovascular: Normal rate. Pulmonary: No increased work of breathing. Abdomen: Soft. She is tender in the lower quadrant. No roxanne peritonitis. Integument: Warm and dry. Psychiatric: Appropriate affect. Neurologic: No gross deficits. Peripheral Vascular: She has lower extremity edema. Lymphatic: No cervical adenopathy. LABORATORY DATA: White count 32, hematocrit 34. Creatinine 0.7. Troponins have been negative. Urinalysis is clear. Her UDS is negative. IMAGING: I reviewed her CT scan. ASSESSMENT AND PLAN: This is a 64-year-old female who had a syncopal event as well as abdominal pain, found to have diverticulitis. There is some question of adjacent ovarian cyst versus an abscess. They are small and deep within the pelvis. She has a pessary in place. From a diverticulitis standpoint, I do not see any obvious abscess. It is difficult to say with the fluid collection in the pelvis. Our plan is for pelvic ultrasound to evaluate further. I do think it would be difficult for this to delineate. Either way, would recommend treating with bowel rest, antibiotics, and observation over the next 24 hours. HEAD STRENGTH AND CONDITIONING COACH is going to consulted for management of her pessary to ensure there is no complications associated with this, although doubtful. We will follow along. We did discuss the possibility of surgical intervention. She understands this. cc: Paresh Pedroza MD
--- NOTE | 2019-08-25 17:51 | Diag Imaging Result Doc PS360 ---
EXAM: US PELVIC NON-OB COMPLETE HISTORY: abcess vs ovarian cyst; removal of pessary TECHNIQUE: Pelvic ultrasound COMPARISON: CT performed earlier FINDINGS: The uterus measures 6.7 x 4.7 x 4.7 cm. The endometrial stripe measures 10 mm. No uterine mass. Complex mixed echogenic area in the left adnexa measuring 4.9 x 6.7 cm. There is a complex 1.9 cm right ovarian cyst. Small amount of free fluid. IMPRESSION: Left adnexal complex masslike area appears to arise from the ovary although an abscess is not completely excluded. Electronically signed by Carroll Escobedo 08/25/2019 5:49 PM
--- NOTE | 2019-08-25 20:54 | EKG Report ---
Test Performed on : 08/25/2019 5:48:56 PM Test Reason : Syncope PHOTOGRAPHIC SPECIALIST Blood Pressure : / mmHG Vent. Rate : 092 BPM Atrial Rate : 092 BPM P-R Int : 138 ms QRS Dur : 080 ms QT Int : 354 ms P-R-T Axes : 033 000 017 degrees QTc Int : 437 ms Normal sinus rhythm. Normal ECG When compared with ECG of 01-AUG-2018 07:32, No significant change was found Confirmed by Keli STUBBS, Uriah ([id number]) on 08/27/2019 8:54:24 AM
[2019-08-26] MEDS: ZOSYN 3.375 GM in NS 50 ML IV SCH ×2 (00:18→05:38)
[2019-08-26] MEDS ORDERED: VANCOMYCIN 1,650 MG in NS 250 ML IV SCH (06:00)
[2019-08-26] MEDS: SYNTHROID PO SCH (06:03)
[2019-08-26 07:10] LABS: BASO# 0.03 X1000 (0.0-0.2); BASO% 0.1 % (0.0-0.8); EOS# 0.16 X1000 (0.0-0.7); EOS% 0.8 % (0.0-10.0); HEMATOCRIT 31.6 % (37.0-47.0); HEMOGLOBIN 9.9 g/dL (12.0-16.0); IMM GRAN# 0.08 X1000 (0.0-0.04); IMM GRAN% 0.4 % (0.0-0.5); LYMPH# 1.54 X1000 (1.2-3.4); LYMPH% 7.4 % (20.5-51.1); MCH 27.4 PG (27-31); MCHC 31.3 g/dL (33-37); MCV 87.5 FL (81-99); MONO# 1.57 X1000 (0.11-0.59); MONO% 7.6 % (1.7-9.3); MPV 10.5 FL (7.4-10.4); NEUT# 17.31 X1000 (1.4-6.5); NEUT% 83.7 % (42.2-75.2); PLT 360 X1000 (130-400); RBC 3.61 XMIL (4.2-5.4); RDW 13.9 % (11.5-14.5); WBC 20.69 X1000 (4.8-10.8)
[2019-08-26 07:22] LABS: AGAP 12; ALB/GLOB RATIO 0.7; ALBUMIN 2.5 g/dL (3.5-5.0); ALKALINE PHOSPHATASE 103 U/L (32-104); BUN 14 mg/dL (8-22); CALCIUM 8.6 mg/dL (8.8-10.2); CHLORIDE 107 mmol/L (98-107); COSMO 286; CREATININE 0.8 mg/dL (0.5-0.9); ESTIMATED GFR > 60; GLUCOSE 105 mg/dL (70-104); GOT 9 U/L (10-30); GPT 6 U/L (10-36); POTASSIUM 3.9 mmol/L (3.5-5.1); SODIUM 143 mmol/L (136-145); TCO2 24 mmol/L (25-35); TOTAL BILIRUBIN 0.68 mg/dL (0.20-1.00); TOTAL PROTEIN 6.1 g/dL (6.3-8.3)
[2019-08-26 07:45] LABS: LYMPHS 2 % (21-51); MONO 8 % (1-9); SEGS 90 % (42-75)
--- NOTE | 2019-08-26 08:35 | ECHO REPORT ---
ORDER DATE: 08/25/2019 INTERPRETING PHYSICIAN: Dr. Juarez REQUESTING PHYSICIAN: CLINICAL INDICATIONS: This is a 64-year-old female with syncope, hypertension. M-MODE MEASUREMENTS: Right ventricle: cm. Left ventricle end diastole: 5.2 cm. Left ventricle end systole: 3.3 cm. Posterior wall: 1.0 cm. Interventricular septum: 1.0 cm. Left atrium: 3.8 cm. Aortic root: cm. SUMMARY OF 2-DIMENSIONAL IMAGIN. The left ventricular function is normal. Ejection fraction visually appears to be in the order of 65%. No wall motion abnormality noted. 2. Aortic valve has 3 cusps. Color flow mapping indicates mild to moderate degree of aortic regurgitation. 3. Pulmonic valve shows mild degree of regurgitation. 4. Tricuspid valve shows mild degree of regurgitation. 5. Pulmonary pressure is estimated at 38 to 43 mmHg. 6. The mitral valve looks grossly normal. Color flow mapping indicates a minimal degree of regurgitation. 7. Pulmonary venous flow is normal. 8. The pulse wave Doppler of mitral inflow shows normal E/A ratio. 9. Tissue Doppler of septal and lateral mitral annulus averages 10 cm. 10.There is no diastolic dysfunction. 11.There is no pericardial effusion, mass or thrombus. 12.The atria appear to be normal. 13.The right side chambers are normal. Clinical correlation is recommended. cc: Juan Juarez MD
[2019-08-26] MEDS: MYCOSTATIN POWDER TOP SCH ×2 (09:02→21:00)
[2019-08-26] MEDS: SODIUM CHLORIDE 0.9% INJ SCH (09:03)
[2019-08-26] MEDS: PROTONIX IV SCH (09:03)
[2019-08-26 11:45] LABS: INR 1.22; PROTIME 15.6 Seconds (11.0-16.0)
[2019-08-26] MEDS: ROCEPHIN 2 GM in NS 50 ML IV SCH (13:10)
--- NOTE | 2019-08-26 14:52 | INFECTIOUS DISEASE CONSULT REP ---
DATE: 08/26/2019 CONCLUSION: The patient has diverticulitis and there appears to be an adjoining pelvic abscess. RECOMMENDATIONS: I have discontinued vancomycin and Zosyn and started the patient on Rocephin 2 g IV every 24 hours and Flagyl 500 mg p.o. every 8 hours. My plan is to continue those 2 antibiotics for 2-1/2 weeks. I have switched the patient also from n.p.o. to a clear liquid diet today and tomorrow soft diet. The plan will be to send the patient home tomorrow and she will come to the outpatient clinic to get IV Rocephin daily and I ordered the patient to have an appointment in my office in 2 weeks, at which time the patient will be examined and a repeat CT scan will be done. If the abscess has fairly well cleared and the diverticulitis is much better, then the patient can be switched to an oral regimen such as Levaquin 500 mg p.o. daily and continue Flagyl 500 mg p.o. every 8 hours. At the patient's last dose of Rocephin, the PICC is ordered to be taken out also. DISCUSSION: The patient was admitted to the hospital. She had 3 days of abdominal cramping. She apparently passed out for approximately 1 minute, but she did not have any seizure-like movement. She has also had fever. CT scan of the abdomen shows diverticulitis and what appears to be an associated abscess. The patient feels much better today and wants to start eating and also she would like to go home. Laboratory studies thus far show the white count is down to 20,690, hemoglobin 9.9, and platelet count 360,000. Creatinine is 0.8. GFR is greater than 60. Liver function studies are normal. Urinalysis is negative. Drug screen is negative. Swab for influenza is negative. Blood cultures are pending. TOOL CHASER HISTORY: Patient is a 2, para 2, AB 0. She has had a tubal ligation. HISTORY/REVIEW OF SYSTEMS: Eyes and ears: She has good vision and hearing. Neck: No stiffness. Respiratory: No cough or shortness of breath. Cardiac: No chest pain or palpitations. GI: See present illness. : No dysuria or flank pain. Neurologic: See present illness. Integument: No rash. PREVIOUS HOSPITALIZATIONS AND OPERATIONS: She has had an appendectomy and a stroke. MEDICAL DISEASES: Positive for obesity, stroke, hypertension, hyperlipidemia, and hypothyroidism. INFECTIOUS DISEASE HISTORY: Positive for urinary tract infection. Negative for pneumonia. FAMILY HISTORY: Positive for myocardial infarction and stroke. SOCIAL HISTORY: The patient is a . [place] Her son lives with her and he has dogs, cats and bird for pets. The patient at home takes amlodipine, Plavix, and Synthroid. The patient does not smoke, drink alcoholic beverages or abuse drugs. PHYSICAL EXAMINATION: Vital Signs: Temperature is 98.6 degrees, pulse 83, respirations 19, blood pressure is 118/55. Patient is 5 feet 4 inches tall, weighs 211 pounds. General: This is an obese, elderly female. She is in no acute distress. Head/eyes/ears/nose/throat: She can hear my spoken words and see near objects. There are no white patches on her tongue. Neck: No meningismus. Lungs: Clear to auscultation. Cardiovascular: Heart rate is regular. Abdomen: Soft. There is only very minimal tenderness in the lower quadrant. The patient states that the tenderness in the abdomen is much better today than it was when she came into the hospital. Neurologic: The patient is alert. She can ambulate. She does not have a tremor. Her memory as regarding her medical history was very good. Integument: No rash. Thank you for the consult. cc: Francisco J Meyer MD [facility] CENTERThalia
--- NOTE | 2019-08-26 16:39 | OB/GYN PROGRESS NOTE ---
Progress Note [facility] - . Patient Problems: Current Active Problems Problem Status Onset Leukocytosis Acute Abdominal pain Acute Abnormal abdominal CT scan Acute Observed seizure-like activity Acute [facility] Progress Note: Vital Signs - 24 hr 08/25/19 18:09 08/25/19 20:06 08/26/19 00:02 Temperature 100 F H 99.2 F Pulse Rate 85 80 Respiratory Rate 20 20 Blood Pressure 110/51 114/46 O2 Sat by Pulse Oximetry 95 96 97 08/26/19 04:24 08/26/19 07:38 08/26/19 08:16 Temperature 99.3 F 98.6 F Pulse Rate 81 83 Respiratory Rate 20 19 Blood Pressure 111/45 118/55 O2 Sat by Pulse Oximetry 95 95 95 08/26/19 12:00 08/26/19 15:31 Temperature 97.1 F L 98.3 F Pulse Rate 98 H 86 Respiratory Rate 18 18 Blood Pressure 122/76 124/55 O2 Sat by Pulse Oximetry 100 98 Laboratory Results - last 24 hr 08/25/19 08/25/19 08/26/19 17:36 17:36 06:35 WBC RBC Hgb Hct MCV MCH MCHC RDW Std Deviation Plt Count MPV Immature Gran % (Auto) Neut % (Auto) Lymph % (Auto) Victoria % (Auto) Eos % (Auto) Baso % (Auto) Immature Gran # (Auto) Neut # (Auto) Lymph # (Auto) Victoria # (Auto) Eos # (Auto) Baso # (Auto) Segmented Neutrophils Lymphocytes Monocytes PT INR Sodium 143 Potassium 3.9 Chloride 107 Carbon Dioxide 24 L Anion Gap 12 BUN 14 Creatinine 0.8 Estimated GFR/1.73 m2 > 60 BUN/Creatinine Ratio 18 Glucose 105 H Calculated Osmolality 286 Calcium 8.6 L Total Bilirubin 0.68 AST 9 L ALT 6 L Alkaline Phosphatase 103 Creatine Kinase 26 Troponin T < 0.010 Total Protein 6.1 L Albumin 2.5 L Globulin 3.6 Albumin/Globulin Ratio 0.7 08/26/19 08/26/19 06:35 11:24 WBC 20.69 H RBC 3.61 L Hgb 9.9 L Hct 31.6 L MCV 87.5 MCH 27.4 MCHC 31.3 L RDW Std Deviation 13.9 Plt Count 360 MPV 10.5 H Immature Gran % (Auto) 0.4 Neut % (Auto) 83.7 H Lymph % (Auto) 7.4 L Victoria % (Auto) 7.6 Eos % (Auto) 0.8 Baso % (Auto) 0.1 Immature Gran # (Auto) 0.08 H Neut # (Auto) 17.31 H Lymph # (Auto) 1.54 Victoria # (Auto) 1.57 H Eos # (Auto) 0.16 Baso # (Auto) 0.03 Segmented Neutrophils 90 H Lymphocytes 2 L Monocytes 8 PT 15.6 INR 1.22 Sodium Potassium Chloride Carbon Dioxide Anion Gap BUN Creatinine Estimated GFR/1.73 m2 BUN/Creatinine Ratio Glucose Calculated Osmolality Calcium Total Bilirubin AST ALT Alkaline Phosphatase Creatine Kinase Troponin T Total Protein Albumin Globulin Albumin/Globulin Ratio Drafter Patent Follow Up Consult S: Feeling improved with good appetite and decreased pain. She denies uterine prolapse, difficulty voiding, or vaginal bleeding following pessary removal O: WBC decreased to 20.9; VSS AF Tmax 100* F yesterday Sono with bilateral adnexal cysts and possible abscess on left ID consult reviewed with change in antibiotic therapy to Flagyl and Rocephin with plans for discharge tomorrow for 2-1/2 weeks of Flagyl 500 mg TID PO and with PICC line for daily Rocephin 2 g Exam NAD and in good spirits Nl resp effort CVS RRR Abd Soft, minimally tender in low quadrants, no rebound, no guarding. Normal bowel sounds Ext no tenderness or excessive swelling A: Sigmoid diverticulitis with abscess Bilateral adnexal cysts Uterine prolapse Medical problems including CHTN, hx CVA, obesity, hyperlipidemia P: Follow up with Dr. Perez for replacement of pessary ~3 weeks, after completion of her next CT and possible vaginal ultrasound, or sooner prn prolapse symptoms Coordinate any needed surgical intervention with general surgery service. She is in agreement with this plan of care. Case reviewed with Dr. Perez earlier today
--- NOTE | 2019-08-26 16:51 | PROGRESS NOTE ---
DATE: 08/26/2019 SUBJECTIVE: This morning Ms. Stiles refers to be doing a lot better, just minimal abdominal discomfort. She has been evaluated by Infectious Disease yesterday. The pessary was removed by Hematology/Oncology. OBJECTIVE: Vital signs: Blood pressure is 124/55, pulse of 83, respiration is 18, temperature 98.3 degrees. Patient is saturating 98% on room air. General exam: Ms. Stiles is a 64-year-old, mildly obese female. She is in bed in no distress. HEENT: Mucosa is pink and moist. Anicteric. Acyanotic. Neck: Supple. Chest: Clear to auscultation. There were no crepitations, no rhonchi. Cardiovascular: Regular rate and rhythm. No murmurs, no rubs, no gallops. GI/Abdomen: Soft, minimally tender in the lower abdomen. No guarding. No rebound. PUBLIC POLICY MEDIATOR: Patient is awake, alert, and oriented. Extremities: No pedal edema. LABORATORY DATA: WBC is down to 20.69, hemoglobin is 9.9, platelet count of 360. Chemistry is also reviewed, completely within normal range. So far, blood cultures are still pending. ASSESSMENT: 1. Syncope at home, presumably orthostatic hypotension from intravascular depletion. 2. Large left adnexal complex mass concerning for ovarian abscess. The patient is currently on intravenous antibiotics. Blood cultures have been negative. White cell count is trending down. Infectious Disease has changed antibiotics today to ceftriaxone with oral metronidazole. 3. Severe abdominal aortic atherosclerosis with small aneurysm noted on CAT scan. The patient has been advised to keep following up. 4. Constipation, improving. 5. Intrauterine pessary, status post removal. 6. Hypothyroidism. Patient is on levothyroxine. PLAN: In general, I think Ms. Stiles is doing a lot better. White cell count is trending down. She continues to be afebrile, hemodynamically stable. We are getting a PICC line today, and get her home hopefully tomorrow on IV Rocephin with p.o. metronidazole. We are also going to check the cholesterol level for Ms Stiles and possibly start her on statin medication due to the atherosclerosis on the abdominal aorta. cc: Chau Douglas MD
[2019-08-26] MEDS: FLAGYL PO SCH (17:43)
--- NOTE | 2019-08-26 21:45 | GENERAL SURGERY PROGRESS NOTE ---
DATE: 08/26/2019 SUBJECTIVE: Doing well. No fevers. OBJECTIVE: Vital signs: Pulse 86, blood pressure 124/55. General: She is alert. Cardiovascular: Normal rate. Pulmonary: No increased work of breathing. Abdomen: Soft, nontender. Extremities: Warm and dry. LABS: White count is down to 20, hematocrit is 31. Creatinine is 0.8. ASSESSMENT AND PLAN: This is a 64-year-old female with diverticulitis with pelvic abscess. It was small. Her pessary been removed. She has adnexal cyst as well for which Gynecology has recommended followup. Otherwise, I think the plan is for PICC line intravenous antibiotics at home to treat her pelvic abscess. We will continue to follow, advance her diet. cc: Paresh Pedroza MD
[2019-08-27] MEDS: MORPHINE IV PRN ×2 (04:37→14:50)
[2019-08-27] MEDS: FLAGYL PO SCH ×3 (04:38→09:02)
[2019-08-27] MEDS: ZOFRAN IV PRN ×2 (04:38→14:50)
[2019-08-27] MEDS: SYNTHROID PO SCH (06:21)
[2019-08-27 07:29] LABS: BASO# 0.03 X1000 (0.0-0.2); BASO% 0.2 % (0.0-0.8); EOS# 0.15 X1000 (0.0-0.7); EOS% 1.1 % (0.0-10.0); HEMATOCRIT 31.5 % (37.0-47.0); HEMOGLOBIN 9.8 g/dL (12.0-16.0); IMM GRAN# 0.06 X1000 (0.0-0.04); IMM GRAN% 0.5 % (0.0-0.5); LYMPH# 1.51 X1000 (1.2-3.4); LYMPH% 11.5 % (20.5-51.1); MCH 26.8 PG (27-31); MCHC 31.1 g/dL (33-37); MCV 86.3 FL (81-99); MONO% 7.6 % (1.7-9.3); MPV 10.6 FL (7.4-10.4); NEUT# 10.42 X1000 (1.4-6.5); NEUT% 79.1 % (42.2-75.2); PLT 394 X1000 (130-400); RBC 3.65 XMIL (4.2-5.4); RDW 13.7 % (11.5-14.5); WBC 13.17 X1000 (4.8-10.8)
[2019-08-27] MEDS: SODIUM CHLORIDE 0.9% INJ SCH (08:55)
[2019-08-27] MEDS: PROTONIX IV SCH (08:55)
[2019-08-27] MEDS: MYCOSTATIN POWDER TOP SCH (09:00)
[2019-08-27] MEDS ORDERED: NS 250 ML ONE (09:19)
[2019-08-27 11:25] VITALS: BP 111/49
[2019-08-27] MEDS: ROCEPHIN 2 GM in NS 50 ML IV SCH (11:33)
--- NOTE | 2019-08-27 22:43 | GENERAL SURGERY PROGRESS NOTE ---
DATE: 08/27/2019 SUBJECTIVE: Doing okay. No pain. Bowel functions still having it but stools were loose, no fevers. Pulse 76, blood pressure 111/49, oxygen saturations 94% .General: She is alert. Cardiovascular: Normal rate . Pulmonary: No increased work of breathing. Abdomen: Is soft, nontender, nondistended. ASSESSMENT AND PLAN: 64-year-old female with a complicated diverticulitis, small pelvic abscess. Plan is for her to go home with IV antibiotics. I can follow as n outpatient. She will need follow-up CT scan, discussed diverticulitis prevention with the patient, she understands. I have also spoken Dr. Meyer about her care. cc: Paresh Pedroza MD
--- NOTE | 2019-08-28 16:17 | DISCHARGE SUMMARY ---
ADMISSION DATE: 08/25/2019 DISCHARGE DATE: 08/27/2019 DISPOSITION: Home. FOLLOW UP: Will be: 1. Dr. Bedolla. 2. Dr. Pedroza. 3. Dr. Perez. 4. Dr. Meyer. CONSULTATION DURING THIS ADMISSION: 1. PHYSICIAN ASSISTANT was consulted. Patient was seen by Dr. Don Ibarra. 2. Infectious Disease was consulted. Patient was seen by Dr. Meyer. 3. Surgery was consulted. Patient was seen by Dr. Pedroza. INVASIVE PROCEDURES DONE DURING THIS ADMISSION: None. IMAGING STUDIES OF SIGNIFICANCE: 1. A CT scan of the head showed no hemorrhage, mild atrophy. 2. A chest x-ray was negative. 3. A CT scan of the chest, abdomen, and pelvis did show sigmoid diverticulitis, adjacent abscess or ovarian cyst, hiatal hernia. There is a small intra-abdominal aortic aneurysm, constipation. 4. Echocardiogram showed an ejection fraction of 65%. No wall motion abnormality. 5. A pelvic ultrasound showed a left adnexal complex masslike appears arising from the ovary, although an abscess is not completely excluded. ADMISSION DIAGNOSES: 1. Diverticulitis. 2. Cystic lesion, developing abscess. 3. Leukocytosis. 4. Nausea and vomiting. 5. Syncope. DIAGNOSES AT THE TIME OF DISCHARGE: 1. Syncope at home, presumably orthostatic hypotension from intravascular depletion. 2. Large left adrenal complex mass concerning for ovarian abscess. 3. Sigmoid diverticulitis. 4. Severe abdominal aortic atherosclerosis with small aneurysm noted on CT scan. 5. Constipation. 6. Hypothyroidism. 7. Intrauterine pessary, status post removal. DISCHARGE MEDICATIONS: 1. Amlodipine 5 mg p.o. daily. 2. Clopidogrel 75 mg p.o. daily. 3. Levothyroxine 150 mcg p.o. daily. 4. Metronidazole 500 p.o. q.8. 5. Ceftriaxone as per Infectious Disease. ADMISSION COMPLAINT: Syncope, abdominal pain. HISTORY OF PRESENTING COMPLAINT: Ms. Stiles is a 64-year-old female who is known to be hypertensive, hypothyroid, came to the emergency department after she blacked out at home the day prior. She was also having some nausea and vomiting. Upon presentation, she was evaluated. Her initial vitals revealed slightly tachycardic. Her orthostatic vitals were positive. At some point she did have a mild low-grade temperature of 100.1. She was admitted for further evaluation. HOSPITAL COURSE: Ms. Stiles initially presented to [facility]. She was transferred to [facility] for higher level of care. During the hospital course investigations including imaging studies revealed a left ovarian abscess and sigmoid diverticulitis. She was started on broad- spectrum IV antibiotics which she responded well. She was also found to be slightly orthostatic on her vitals. She was hydrated overnight. She became completely asymptomatic. She did not have any more syncopal episodes. Her blood cultures have come back 48 hours negative. So far her white cell count has improved from 31,000 on admission to 13.17 this morning. Ms Stiles refers to be doing a lot better. Her physical exam is completely benign this morning. Her current vitals, blood pressure is 111/49, pulse of 76, respirations 20, temperature is 99.1 degrees. Patient is saturating 94 to 96% on room air. We think she is fairly stable to be discharged. She has been advised to maintain adequate oral hydration. She is going to be on IV Rocephin via PICC line catheter. PICC line care has been discussed with her. She is also going to be on oral metronidazole. Ms. Stiles will follow up with Dr. Meyer. The plan is to eventually get a repeat CT scan in about 2 weeks to follow up on the abscess. She is also going to follow up with Dr. Pedroza on the diverticulitis and Dr. Perez, the PHYSICIAN ASSISTANT for possible reinsertion of her pessary once the acute infection is completely resolved. All the discharge instructions have been discussed with her and she voiced understanding. During the hospital course, Ms. Stiles was also found to have an atherosclerosis of the aorta with small aneurysm. She has been advised to follow up with her primary care doctor. TIME SPENT FOR DISCHARGE: Thirty-eight minutes. cc: MD Dr. Kasia Yusuf DO Dr. Putman Dr. Harris MTDD
== END 2019-08-27 16:06 | disposition home health service (06) | DRG 641 ==
LOC: P.ED 22:51 → 4N 08-25 03:36 → SUATTDRO 08-25 03:36
PROVIDERS: ATTEND Internal Medicine

== ENCOUNTER 2019-08-31 02:40 | Inpatient (IN) ==
[2019-08-31] MEDS ORDERED: NS 1,000 ML IV ONE (03:31)
[2019-08-31] MEDS ORDERED: ZOFRAN IV ONE (03:31)
[2019-08-31 04:25] LABS: BASO# 0.01 X1000 (0.0-0.2); BASO% 0.1 % (0.0-0.8); EOS# 0.13 X1000 (0.0-0.7); EOS% 1.4 % (0.0-10.0); HEMATOCRIT 32.5 % (37.0-47.0); IMM GRAN# 0.18 X1000 (0.0-0.04); IMM GRAN% 1.9 % (0.0-0.5); LYMPH# 0.52 X1000 (1.2-3.4); LYMPH% 5.6 % (20.5-51.1); MCH 26.5 PG (27-31); MCHC 30.8 g/dL (33-37); MONO# 0.07 X1000 (0.11-0.59); MONO% 0.8 % (1.7-9.3); MPV 9.9 FL (7.4-10.4); NEUT# 8.34 X1000 (1.4-6.5); NEUT% 90.2 % (42.2-75.2); PLT 311 X1000 (130-400); RBC 3.78 XMIL (4.2-5.4); RDW 14.1 % (11.5-14.5); WBC 9.25 X1000 (4.8-10.8)
--- NOTE | 2019-08-31 04:25 | PROVIDER DOCUMENTATION ---
HPI-General Adult - General Chief Complaint: Nausea/Vomiting Stated Complaint: n/v Time Seen by Provider: 08/31/19 03:17 Source: patient Allergies/Adverse Reactions: Patient Allergies Allergy/AdvReac Type Severity Reaction Status Date / Time No Known Allergies Allergy Verified 08/31/19 02:59 Home Medications: Home Medication List Medication Instructions Recorded Confirmed Last Taken Type Amlodipine [Norvasc] 5 mg PO DAILY 06/22/19 08/31/19 08/28/19 History Clopidogrel [Plavix] 75 mg PO DAILY 06/22/19 08/31/19 08/28/19 History Levothyroxine [Synthroid] 150 mcg PO DAILY 06/22/19 08/31/19 08/28/19 History Metronidazole [Flagyl] 500 mg PO Q8H 17 Days tab 08/26/19 08/31/19 08/28/19 Rx - History of Present Illness -Gen Adult Nature of Presenting Problems: 64 y/o F presents to the ED complaining of LLQ abdominal pain. States she was just discharged on 08/27 after an admission for diverticulitis and an ovarian abscess and had been doing well until she awoke at about 1am with increased LLQ pain, nausea and vomiting. States she checked her temperature and found it to be 103F. no diarrhea, no dysuria, Has been complaint with her discharge abx, flagyl po and rocephin via PICC Review of Systems - Adult - REVIEW OF SYSTEMS - ADULT Constitutional: reports: no symptoms reported Eyes: reports: no symptoms reported Ears, Nose, Mouth & Throat: reports: no symptoms reported Cardiovascular: reports: no symptoms reported Respiratory: reports: no symptoms reported Gastrointestinal: reports: abdominal pain, nausea, vomiting. denies: diarrhea Genitourinary: reports: no symptoms reported Musculoskeletal: reports: no symptoms reported Integumentary: reports: no symptoms reported Neurological: reports: no symptoms reported Psychiatric: reports: no symptoms reported Endocrine: reports: no symptoms reported Hematologic/Lymphatic: reports: no symptoms reported Allergic/Immunologic: reports: no symptoms reported All Other Systems: Reviewed and Negative Past History - Adult - PAST MEDICAL HISTORY-ADULT Review of Records: reports: Old Records Reviewed, Nursing Assessment Review, Medications Reviewed, Social history reviewed & non-contributory. Major Childhood Illnesses: reports: denies history Cardiovascular: reports: HTN, hyperlipidemia Respiratory: reports: denies history Gastrointestinal: reports: denies history Obstetrical/Gynecological: reports: denies history Genitourinary: reports: denies history Musculoskeletal: reports: denies history Neurological: reports: CVA Endocrine/Immune: reports: thyroid disorder Other Conditions: reports: denies history - PRIOR SURGERIES/PROCEDURES Surgical/Procedure History: reports: appendectomy Physical Exam-General - PHYSICAL EXAM-ADULT Initial Vital Signs Reviewed: Yes - CONSTITUTIONAL General Appearance: appears well, alert, no apparent distress - EYES Eyes: PERRL/EOMI, pink conjunctivae - HEAD, EARS, NOSE, MOUTH & THROAT HENMT: normocephalic/atraumatic, moist mucous membranes, normal ENT inspection - NECK Neck: non-tender, full range of motion, supple - RESPIRATORY Respiratory: chest non-tender, lungs clear, normal breath sounds - CARDIOVASCULAR Cardiovascular: normal peripheral pulses, regular rate, rhythm, no edema - GASTROINTESTINAL (ABDOMEN) Abdominal Exam: soft, tenderness (moderate LQ ttp) - MUSCULOSKELETAL Back Exam: normal inspection Extremity: normal range of motion, non-tender - SKIN Integumentary: normal color, normal turgor, warm/dry - NEUROLOGIC Neurologic: grossly normal, no motor/sensory deficits - PSYCHIATRIC Psych/Mental Status: normal mood/affect, normal thought content, normal thought process, oriented x 3 Progress - PLAN OF CARE/RESULTS Progress/Plan/Lab Results: Vital Signs - 8 hr 08/31/19 02:40 08/31/19 02:50 08/31/19 03:00 Temperature 100.2 F H Pulse Rate 119 H 119 H 115 H Respiratory Rate 20 Blood Pressure 126/77 126/77 O2 Sat by Pulse Oximetry 96 96 08/31/19 03:01 08/31/19 03:15 08/31/19 03:30 Temperature Pulse Rate 116 H 111 H 116 H Respiratory Rate 22 Blood Pressure 141/67 O2 Sat by Pulse Oximetry 94 L 95 99 08/31/19 03:31 08/31/19 03:45 08/31/19 04:00 Temperature Pulse Rate 120 H 116 H 112 H Respiratory Rate 19 Blood Pressure 169/75 O2 Sat by Pulse Oximetry 98 95 Orders Category Date Time Status IV Insertion ORDERED Care 08/31/19 03:[address] ABD/PELVIS W/IV CONT ONLY [CT] Stat Exams 08/31/19 03:29 Ordered BLOOD CULTURE [BLDCUL] Stat Lab 08/31/19 03:47 Received CBC WITH DIFF [HEME] Stat Lab 08/31/19 03:48 Results COMPREHENSIVE METABOLIC PANEL [CHEM] Stat Lab 08/31/19 03:48 Received LIPASE [CHEM] Stat Lab 08/31/19 03:48 Received URINALYSIS W/POSS RFLX CULT [URINALYSIS] Stat Lab 08/31/19 03:29 Uncollected 0.9% Sodium Chloride Inj [Ns] 1,000 ml Med 08/31/19 03:31 Active IV 999 mls/hr Ondansetron [Zofran] Med 08/31/19 03:31 Discontinued 4 mg IV NOW ONE abdominal pain with recent diagnosis of diverticulitis and ovarian abscess. Will further evaluate for causes including but not limited to worsening diverticulitis, worsening abscess, uti, perforation, pancreatitis, Result Diagrams: 08/31/19 03:48 08/31/19 03:48 - CONSULTS/PCP/HOSPITALIST Notification #1 *Consult/PCP/Hospitalist*: Bijal jean Hospitalist Time Discussed: 07:11 Consult Disposition: Will see in ED, Admit #2 Consult: Dr Viera Time Discussed: 07:15 Reason/Comments: asked for Hosp. admit. Consult Disposition: Admit - CHANGE OF SHIFT REPORT (ED Provider) 1 Report Given and Care Transferred to:: Dr. Byrne Time of Transfer: 07:00 Items Pending: Physician Consult/Arrival Departure - Departure Date of Disposition Decision: 08/31/19 Time of Disposition Decision: 07:12 DIAGNOSIS: Ovarian abscess, Abdominal abscess, Partial small bowel obstruction, Anemia, Hyponatremia Disposition: ADMITTED INPATIENT 09 Certified Medical Emergency: Emergent Condition: Fair Referrals and Follow-Ups: Peter Bedolla MD [Primary Care Provider] - - Critical Care Note This patient required my direct & personal management of CC.: No Attestation - Physician/ PARTH Attestation Patient care was provided by Advanced Practice Provider:: No The physician spent face to face time with patient:: Yes Advanced Practice Provider documentation review:: Supervising physician onsite and consulted in the evaluation and care of this patient. The physician did have a face to face encounter with the patient.
[2019-08-31 04:27] LABS: URINE SOURCE CLEAN CATCH
[2019-08-31 04:43] LABS: BILIRUBIN URINE NEGATIVE (NEGATIVE); BLOOD URINE SMALL (NEGATIVE); COLOR YELLOW; GLUCOSE URINE NEGATIVE (NEGATIVE); KETONE URINE NEGATIVE (NEGATIVE); LEUKOCYTES URINE TRACE (NEGATIVE); NITRITE URINE NEGATIVE (NEGATIVE); PH URINE 5.5; PROTEIN URINE NEGATIVE (NEGATIVE); SP GRAVITY URINE 1.017; TURBIDITY URINE HAZY (CLEAR); UROBILINOGEN URINE NORMAL (NORMAL)
[2019-08-31 04:45] LABS: UR EPITHELIAL CELLS <10 /HPF (<10); URINE BACTERIA NEGATIVE /HPF; URINE RBC 20-40 /HPF (<10); URINE WBC <10 /HPF (<10)
[2019-08-31 04:52] LABS: AGAP 11; ALB/GLOB RATIO 0.6; ALBUMIN 2.4 g/dL (3.5-5.0); ALKALINE PHOSPHATASE 103 U/L (32-104); BUN 13 mg/dL (8-22); CHLORIDE 100 mmol/L (98-107); COSMO 267; CREATININE 0.6 mg/dL (0.5-0.9); ESTIMATED GFR > 60; GLUCOSE 103 mg/dL (70-104); GOT 20 U/L (10-30); GPT 11 U/L (10-36); LIPASE 17 U/L (13-60); POTASSIUM 3.7 mmol/L (3.5-5.1); SODIUM 133 mmol/L (136-145); TCO2 22 mmol/L (25-35); TOTAL BILIRUBIN 0.28 mg/dL (0.20-1.00); TOTAL PROTEIN 6.3 g/dL (6.3-8.3)
[2019-08-31 05:05] LABS: CALCIUM 8.7 mg/dL (8.8-10.2)
[2019-08-31] MEDS ORDERED: LR 1,000 ML IV ONE (07:28)
--- NOTE | 2019-08-31 08:18 | Diag Imaging Result Doc PS360 ---
EXAM: CT ABD/PELVIS W/IV CONT ONLY HISTORY: LLQ pain with recent diverticulitis TECHNIQUE: CT abdomen and pelvis with intravenous contrast COMPARISON: 08/25/2019 FINDINGS: There is a moderate sized hiatal hernia. No calcified gallstones or adjacent inflammation. There is fatty infiltration of liver. No splenomegaly. Normal pancreas and adrenal glands. Normal enhancement of the kidneys. No hydronephrosis. Moderate to prominent atherosclerosis. Multi lobulated and cystic complex collection in the pelvis remains. It is difficult to separate this multiloculated collection from the sigmoid colon and uterus making measuring difficult. However, this measures at least 5 x 5 x 8 cm. Questionable small amount of free air in the left adnexa. The colon is not distended. The distal small bowel is mildly distended. The urinary bladder is only mildly distended. IMPRESSION: 1.Multilobulated pelvic abscess with questionable small extraluminal air in the left adnexa 2.Small bowel ileus or partial distal obstruction 3.A preliminary report was given at 6:37 AM This exam was performed using automated exposure control, adjustment of mA or kV according to patient size, and/or use of iterative reconstruction technique. Electronically signed by Carroll Escobedo 08/31/2019 8:16 AM
[2019-08-31] MEDS: ZOSYN 3.375 GM in NS 50 ML IV SCH ×3 (08:24→20:08)
[2019-08-31 08:52] LABS: INR 1.1; PROTIME 14.3 Seconds (11.0-16.0); PTT 26.9 Seconds (22.3-41.8)
[2019-08-31] MEDS ORDERED: SODIUM CHLORIDE 0.9% INJ PRN (09:36)
[2019-08-31] MEDS ORDERED: SODIUM CHLORIDE 0.9% INJ SCH (09:45)
[2019-08-31] MEDS: PROTONIX IV SCH ×2 (11:28→20:08)
[2019-08-31] MEDS: LOVENOX SUBQ SCH (15:16)
[2019-08-31] MEDS: TYLENOL PO PRN ×2 (15:16→20:15)
--- NOTE | 2019-08-31 20:58 | GENERAL SURGERY CONSULTATION ---
DATE: 08/31/2019 REQUESTING PHYSICIAN: Emergency Department. REASON FOR CONSULTATION: Worsening diverticular disease. HISTORY OF PRESENT ILLNESS: A 64-year-old female who was recently admitted to the hospital for diverticular abscess versus ovarian abscess. She had been treated and improved, and was sent home with a PICC line and IV antibiotics. She came in after having some degree of worsening pain. She had a repeat CT scan that showed slight mild progression of the diverticular disease, but she is feeling better right now. She does not have a leukocytosis. She does not have a left shift. She does have a low-grade fever of 100.2 degrees. PAST MEDICAL HISTORY: Includes hypertension, hyperlipidemia, hypothyroidism, gout, history of CVA, arthritis, pelvic prolapse. PAST SURGICAL HISTORY: Includes tonsillectomy, tubal ligation. SOCIAL HISTORY: Former smoker. FAMILY HISTORY: Hypertension and stroke. ALLERGIES: None. HOME MEDICATIONS: Reviewed. Of note, she is on Plavix. REVIEW OF SYSTEMS: A full 14 systems reviewed and negative except as specified in HPI. PHYSICAL EXAMINATION: Vital signs: The patient's current temperature is 100.2 degrees, pulse 112, blood pressure 169/75. General exam: Resting female, looks stated age.HEENT: Normocephalic, atraumatic. Pupils equal, round and reactive to light. Mucous membranes moist. Oropharynx benign. Neck supple. Trachea midline. Cardiovascular: Regular rate and rhythm, with some mild tachycardia. Lungs grossly clear. Abdomen soft. No real significant tenderness on exam right now. No peritoneal signs. Extremities: Moves all extremities. Neurologic: Grossly intact. Skin: No signs of jaundice. Vascular: All extremities perfused. LABORATORY DATA: Reviewed. White blood cell count is 9, which is down from her previous admission. Hematocrit 32, platelet count 311,000. Remainder of labs reviewed. DIAGNOSTIC DATA: CT scan independently reviewed and radiology report reviewed. ASSESSMENT AND PLAN: A 64-year-old female with possible diverticular abscess and/or ovarian cyst/abscess. Intra-abdominal abscess. At this time I agree with admission. I did discuss options of surgical intervention, but told her that she may require a colostomy, which she is not wanting right now. She is presently not tender, so we will get the hospitalist to admit her. We will keep her NPO. May need to broaden her antibiotics. We will continue to follow. cc: Simon Viera MD
[2019-08-31] MEDS ORDERED: PRILOSEC PO SCH (21:00)
--- NOTE | 2019-09-01 01:23 | HISTORY AND PHYSICAL ---
PRIMARY CARE PROVIDER: Peter Bedolla. CHIEF COMPLAINT: Abdominal pain, nausea, vomiting. HISTORY OF PRESENT ILLNESS: Ms Chen Stiles is a 64-year-old female who was actually here end of last month/beginning of this month, was discharged on the 3rd of this month with complaints of abdominal pain at that time and nausea, vomiting. She had a CT scan and ultrasound. She had several consults, 1 was General Surgery, another was Dr. Meyer and the otherwise [employer] secondary to the fact that she was found either have a diverticular abscess or a left ovarian abscess and was given a PICC line, treated with IV Rocephin and p.o. Flagyl and discharged home. She had also presented with syncope at that time as well but workup was negative for that. Now she presents with complaints of mid lower abdominal pain that started last night. In addition to that, there was fever and chills and she states that her fever had gotten up to 103. She had a bowel movement yesterday, but it was small and it was constipation. States she only has a bowel movement every 2 to 3 days. She also had some nausea and some vomiting. During her last stay, it is noted that her pessary device was also removed. Dr. Viera was consulted by the ER physician this morning who went to see the patient and then called for admission. He states that the patient does not wish to go through with any surgery at this time and so we will go with treating antibiotic. She does look like she has some signs and symptoms of sepsis. The white count is normal and the lactate is also normal, but she is tachycardic and had a low- grade fever and the blood pressure was trending down but it is still stable. She will be transferred to [facility] for closer observation. While she is here we went ahead and did another abdominal/pelvic CT which showed a multilobulated pelvic abscess with questionable small extraluminal air in the left adnexa. It also shows a small bowel ileus or partial distal obstruction so she will be kept NPO for now. PAST MEDICAL HISTORY: 1. Hypertension. 2. Hyperlipidemia. 3. Hypothyroidism. 4. Gout. 5. CVA, lacunar on the left parietal. 6. Arthritis. 7. Uterine prolapse with a recent history of pessary device removed. 8. Severe abdominal aortic atherosclerosis with a small intraabdominal aortic aneurysm found on CTA last admit. 9. Left ovarian abscess versus diverticular abscess on last admission. 10. Recent diverticulitis of the sigmoid colon last admission. 11. Constipation. 12. Questionable seizure with a syncopal episode prior to the last admission admit. SURGICAL HISTORY: 1. Vaginal pessary device placed and removed. It was removed on 08/25/2019 by [employer]. 2. Appendectomy. 3. Tubal ligation. SOCIAL HISTORY: Son lives with her. Quit smoking in 2017. She was a 1 pack per day smoker for 25 to 30 years. No alcohol or illicit drug use. FAMILY HISTORY: Mother, hypertension, stroke. Father, heart disease and at 59 from suspected PR. ALLERGIES: No known drug allergies. HOME MEDICATIONS: 1. Norvasc 5 mg p.o. daily. 2. Plavix 75 mg p.o. daily. 3. Synthroid 150 mcg p.o. daily. 4. Flagyl 500 mg p.o. every 8 hours. 5. Is getting IV Rocephin. REVIEW OF SYSTEMS: Fourteen point review of systems are complete. All were negative except for those mentioned in above HPI. PHYSICAL EXAMINATION: SIGNS: Temperature 97.9 degrees, heart rate 86, respiratory rate 22, blood pressure 112/59, oxygen saturation 97% on room air. She is 5 feet 4 inches tall, 200 pounds. BMI is 34.3. GENERAL: Ms. Chen Stiles is a 64-year-old female. She is in no acute distress. She is able answer questions appropriately. HEENT: Atraumatic, normocephalic. Pupils equal, round, reactive to light. Extraocular movements intact. Mucous membranes are dry. NECK: Trachea midline. CARDIOVASCULAR: S1, S2. Regular rate and rhythm. No rubs, gallops, murmurs. No lower extremity edema. +2 dorsalis and radial pulses. Negative JVD or carotid bruits. PULMONARY: Clear to auscultate. Bilateral breath sounds. No accessory muscle use or work of breathing noted. GASTROINTESTINAL: Soft. Tender bilateral lower quadrants of the abdomen. Positive hypoactive bowel sounds. EXTREMITIES: Decreased range of motion. Equal strength. NEUROLOGIC: A and O x3. Follows commands. Sensory is intact. SKIN: Warm, dry and intact. LABORATORY DATA: White blood cells 9000, hemoglobin 10, hematocrit 32, platelet count 311,000. INR is 1.10, PTT is 26.9. Sodium 133, potassium 3.7, BUN 13, creatinine 0.8, glucose 103, calcium 8.7, bilirubin 0.28, AST 20, ALT 11. CK 21, troponin 0.023. Albumin is 2.4. Lipase 17. Lactate 1.3. Urinalysis, small blood, trace leukocytes, 20 to 40 red blood cells. IMAGING: Abdominal/pelvic CT, multilobulated pelvic abscess with questionable small extraluminal air in the left adnexa, small bowel ileus or partial distal obstruction. ASSESSMENT AND PLAN: 1. Left ovarian abscess versus diverticular abscess, now with partial small- bowel obstruction versus ileus. She is NPO for now. She is deferring surgery for now. Dr. Viera has already spoke with her this morning. She will have IV fluid hydration. Dr. Meyer will be reconsulted for antibiotic management. The patient is too worried about possibly having to have a colostomy. 2. Hypertension. It is stable right now. We may have to add something IV if she cannot have p.o. medications. 3. Hyperlipidemia. 4. Hyperthyroidism. P.o. Synthroid changed to IV. 5. Severe abdominal aortic sclerosis and small intra-abdominal aortic aneurysm reported on her last admission. As far as I can tell, this is stable for now. 6. Deep venous thrombosis prophylaxis. SCDs. Dictated by CHELSEY Coronado for Luis Angel Ray MD cc: CHELSEY Coronado MD I agree with most components of history, physical, assessment and plan. A separate addendum has been dictated. [facility]ISCH HOSPITALThalia
--- NOTE | 2019-09-01 02:07 | HISTORY AND PHYSICAL ---
ADDENDUM: This is an addendum to history and physical dictated by the nurse practitioner. I agree with most components of history, physical, assessment and plan. In brief, Ms. Stiles is a 64-year-old lady with past medical history of hypertension, hypothyroidism and CVA in 07/2018. She was recently admitted 1 week ago for chief complaints of syncope and suspected sepsis. She was found to have a pelvic abscess associated with diverticulitis and suspected left-sided adnexal cyst associated with it. She was discharged on IV antibiotics through PICC line for conservative management of abscess, and was supposed to get a CAT scan in future to assess the evaluation of abscess. She comes in with chief complaints of high-grade fevers, chills and episode of nausea with vomiting, which happened today morning. SUBJECTIVE: At the time of my evaluation in the emergency room, the patient states she is feeling significantly better. In the morning time her antibiotics were changed from intravenous ceftriaxone and oral metronidazole to intravenous Zosyn. She has been started on intravenous fluids. At the time of my evaluation she states that if surgery seems appropriate, then she is willing to undergo surgery. Her son is at bedside. PHYSICAL EXAMINATION: VITAL SIGNS: Currently temperature is 98.8 degrees, pulse 97, respiratory 24, blood pressure 118/67, saturating 98% room air. She states at home she had a fever of 103 degrees. HEENT: Oral cavity is moist. GENERAL: Not in acute distress. LUNGS: Air entry bilaterally equal. She had mildly diminished air entry in the right hemithorax with inspiratory crackles. CARDIOVASCULAR: S1, S2 normal. Regular. No murmur, rub or gallop. ABDOMEN: Obese, soft, nontender. EXTREMITIES: No lower extremity edema. She is alert and oriented x3. LABORATORY DATA: Labs suggestive of no leukocytosis, normocytic anemia, normal platelet count. She also has normal electrolytes. Her blood culture and urine culture are in lab. DIAGNOSTIC DATA: Abdomen and pelvis CT had multilobulated pelvic abscess, with questionable small extraluminal air in the left adnexa; small bowel ileus or partial distal obstruction; however, the patient stated she had a bowel movement yesterday and she denies any more abdominal pain at the moment, except mild soreness. ASSESSMENT AND PLAN: 1. Suspected sepsis from left-sided pelvic abscess. The source could be diverticulitis versus tuboovarian abscess. Start the patient on intravenous Zosyn. Continue intravenous fluids. General Surgical team on board. The patient may eventually need surgical intervention, and I explained to the patient and her son about need for this, considering her fever and slightly larger size of abscess. They are in agreement, and they are willing to proceed. General Surgical team's recommendation appreciated. 2. History of cerebrovascular accident in 07/2018. 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 She has been taking clopidogrel at home. Considering possible need for future surgery, I am holding off on giving clopidogrel for now. I will keep her on enoxaparin for deep venous thrombosis prophylaxis. 3. History of hypothyroidism and essential hypertension. I will resume her home medication as tolerated. 4. Disposition: I will transfer the patient to the surgical floor under telemetry unit. Plan of care discussed with the patient and her son at bedside. All of their questions have been answered. cc: Luis Angel Ray MD
[2019-09-01] MEDS: ZOSYN 3.375 GM in NS 50 ML IV SCH ×4 (03:00→20:54)
[2019-09-01] MEDS: TYLENOL PO PRN ×2 (03:30→15:31)
[2019-09-01 06:14] LABS: BASO# 0.01 X1000 (0.0-0.2); BASO% 0.1 % (0.0-0.8); EOS% 0.9 % (0.0-10.0); HEMATOCRIT 27.8 % (37.0-47.0); HEMOGLOBIN 8.4 g/dL (12.0-16.0); IMM GRAN# 0.09 X1000 (0.0-0.04); IMM GRAN% 0.8 % (0.0-0.5); LYMPH# 0.65 X1000 (1.2-3.4); LYMPH% 5.8 % (20.5-51.1); MCHC 30.2 g/dL (33-37); MCV 86.1 FL (81-99); MONO# 0.68 X1000 (0.11-0.59); MONO% 6.1 % (1.7-9.3); MPV 10.4 FL (7.4-10.4); NEUT# 9.59 X1000 (1.4-6.5); NEUT% 86.3 % (42.2-75.2); PLT 246 X1000 (130-400); RBC 3.23 XMIL (4.2-5.4); RDW 14.4 % (11.5-14.5); WBC 11.12 X1000 (4.8-10.8)
[2019-09-01 06:32] LABS: AGAP 12; ALB/GLOB RATIO 0.6; ALKALINE PHOSPHATASE 119 U/L (32-104); BUN 8 mg/dL (8-22); CALCIUM 8.3 mg/dL (8.8-10.2); CHLORIDE 102 mmol/L (98-107); COSMO 274; CREATININE 0.8 mg/dL (0.5-0.9); ESTIMATED GFR > 60; GLUCOSE 107 mg/dL (70-104); GOT 18 U/L (10-30); GPT 9 U/L (10-36); MAGNESIUM 1.6 mg/dL (1.5-2.7); POTASSIUM 3.6 mmol/L (3.5-5.1); SODIUM 138 mmol/L (136-145); TCO2 24 mmol/L (25-35); TOTAL BILIRUBIN 0.25 mg/dL (0.20-1.00); TOTAL PROTEIN 5.3 g/dL (6.3-8.3)
[2019-09-01] MEDS ORDERED: SYNTHROID IV SCH (07:00)
[2019-09-01] MEDS: PROTONIX IV SCH (08:32)
[2019-09-01 10:37] LABS: BANDS 10 % (0-1); LYMPHS 6 % (21-51); MONO 6 % (1-9); SEGS 78 % (42-75)
--- NOTE | 2019-09-01 10:48 | GENERAL SURGERY PROGRESS NOTE ---
DATE: 09/01/2019 SUBJECTIVE: Patient doing okay. OBJECTIVE: Vital Signs: Patient's T-max is 101.8 degrees, T current 98.2. She has been hemodynamically stable. General: No acute distress. HEENT: Normocephalic, atraumatic. Pupils equal, round, reactive to light. Mucous membranes moist. Oropharynx benign. Neck: Supple, trachea midline. Cardiovascular: Regular rate and rhythm. Lungs: Grossly clear. Abdomen: Soft. No real significant tenderness to palpation at this time. Extremities: Moves all extremities. Neurologic: Grossly intact. Skin: No signs of jaundice. Vascular: All extremities perfused. LABORATORY: Currently pending this morning. ASSESSMENT AND PLAN: A 64-year-old female with persistent intra-abdominal fluid collection versus abscess from diverticulitis or ovarian origin. 1. Intra-abdominal fluid collection versus abscess. At this time, she is on antibiotics. We put her on Zosyn. This is a little bit broader coverage than what she was on previously. We have reconsulted Dr. Meyer for further recommendations. I suspect, given the fact that she did not improve with outpatient therapy that she is going to require surgical drainage. It is not in a place anatomically that we can do a percutaneous. I suspect we will have to probably do an open approach. She is on Plavix and so ideally we will let the Plavix could either system for several days and may consider surgical intervention early to middle of the week. 2. At this point, we will continue to follow and continue to monitor. She does not look septic or toxic so I think we can manage her and delay her surgical intervention to control bleeding loss with the Plavix. cc: Simon Viera MD
--- NOTE | 2019-09-01 12:44 | PROGRESS NOTE ---
DATE: 09/01/2019 INTERVAL HISTORY: She had a temperature of 101.8 degrees yesterday. She has mild leukocytosis of 11,000 and drop in her hemoglobin after intravenous fluid resuscitation. SUBJECTIVE: She is feeling fine. She states she has been eating well without any nausea or vomiting. She had a couple of bowel movements today morning. She denies chest pain, shortness of breath, cough, nausea, vomiting, abdominal pain. She states the surgeon doctor had a discussion with her about possible surgery in the middle of next week. OBJECTIVE: Vital Signs: Currently temperature of 98.6 degrees, pulse 88, respiratory rate 14, blood pressure 109/50. She is saturating 95% on room air. General: Not in any acute distress. HEENT: Oral cavity is moist. Lungs: Air entry bilaterally equal. No wheeze, rhonchi, or crackles. Cardiovascular: S1, S2 normal. Regular rate and rhythm. No murmur, rub, or gallop. Abdomen: Obese, soft, nontender. Active bowel sounds. Extremities: Mild bilateral lower extremity edema. LABORATORY STUDIES: Suggestive of leukocytosis, normocytic anemia, normal platelet count, normal electrolytes. MICROBIOLOGY: No positive data so far. IMAGING STUDIES: Chest x-ray has been performed which suggests mild atelectasis on the left lung, which has in fact improved since previous presentation. ASSESSMENT AND PLAN: 1. Suspected sepsis from left-sided pelvic abscess. Sources could be abscess associated with diverticulitis versus tuboovarian abscess. Continue intravenous Zosyn. Day 1 was 08/31/2019. Surgical team on board for possible surgical exploration sometime next week. Follow up final blood culture results. 2. History of cerebrovascular accident in July 2018. She is not taking any statin because of history of myopathy. I will keep her on enoxaparin for deep venous thrombosis prophylaxis and hold Plavix considering possible surgical exploration in the future. 3. History of hypothyroidism and essential hypertension, currently appears to be stable. Continue home levothyroxine. DISPOSITION: I will transfer patient to surgical unit. Plan of care discussed with the patient and questions have been answered. cc: Luis Angel Ray MD
--- NOTE | 2019-09-01 13:41 | INFECTIOUS DISEASE PROGRESS NO ---
DATE: 09/01/2019 PRESENT ILLNESS: The patient was discharged home on IV Rocephin and p.o. Flagyl for diverticulitis with an associated pelvic abscess. She was readmitted to the hospital because she had fever. The patient told me that recently she started having diarrhea. MEDICATIONS AT HOME: As mentioned above, the patient was taking IV Rocephin and p.o. Flagyl. Since being admitted to the hospital, she is on Zosyn with which I agree. PHYSICAL EXAMINATION: Vital Signs: Temperature earlier was 102. It is 98.6 now, pulse 76, respirations 16, blood pressure is 109/50. General: This is a somewhat ill-appearing, elderly female. She is in no acute distress. Head, Eyes, Ears, Nose, and Throat: She can hear my spoken words and see near objects. She does not have any white patches on her tongue. Neck: No stiffness. Lungs: Clear to auscultation. Cardiovascular: Heart rate is regular. Abdomen: Soft. It was not tender to light palpation. Bowel sounds are present. Neurologic: The patient is alert. She can move her extremities. There is no tremor. Integument: No rash. LAB AND X-RAY: The patient's CT scan of the abdomen and pelvis showed a multilobulated pelvic abscess and either ileus or partial obstruction. CBC shows a white count of 11,120, hemoglobin 8.4, platelet count 246,000. Creatinine is 0.8 with GFR greater than 60. ASSESSMENT AND PLAN: The patient, as mentioned above, was felt to have diverticulitis with an associated abscess. I agree with treating the patient now with the Zosyn. Some of the side effects of the antibiotic including rash and diarrhea have been explained the patient, who agrees with treatment. The patient has started having diarrhea and I think she could have Clostridium difficile, so I have gone ahead and ordered stool for Clostridium difficile toxin and antigen. Also, I have ordered a chest x-ray in case the patient has developed pneumonia while at home. COMORBIDITIES: The patient has had a stroke. She has severe abdominal aortic atherosclerosis with a small intra-abdominal aortic aneurysm. The patient did have diverticulitis and that may be the cause of her abscess. cc: Francisco J Meyer MD
[2019-09-01] MEDS: LOVENOX SUBQ SCH (14:25)
--- NOTE | 2019-09-01 15:58 | Diag Imaging Result Doc PS360 ---
EXAM: CHEST-1 VIEW - 09/01/2019 HISTORY: pneumonia TECHNIQUE: Portable chest one view COMPARISON: 08/25/2019 FINDINGS: Heart size is normal. There is mild prominence of central vascular markings similar to prior. There is no dense consolidation, pleural effusion, or pneumothorax identified. There has been interval insertion of PICC from the left, with its tip at the expected location of the distal superior cava. IMPRESSION: Interval insertion of PICC, with its tip at the distal superior vena cava. No other acute changes. No indication of pneumonia. Electronically signed by Brandon Schneider 09/01/2019 3:56 PM
[2019-09-01] MEDS ORDERED: CALMOSEPTINE OINTMENT TOP PRN (17:01)
[2019-09-02] MEDS: ZOSYN 3.375 GM in NS 50 ML IV SCH ×4 (03:27→22:44)
[2019-09-02] MEDS: PRILOSEC PO SCH (06:36)
[2019-09-02] MEDS: SYNTHROID PO SCH (06:36)
[2019-09-02 07:12] LABS: BASO# 0.02 X1000 (0.0-0.2); BASO% 0.2 % (0.0-0.8); EOS% 2.3 % (0.0-10.0); HEMATOCRIT 30.9 % (37.0-47.0); HEMOGLOBIN 9.4 g/dL (12.0-16.0); IMM GRAN# 0.07 X1000 (0.0-0.04); IMM GRAN% 0.5 % (0.0-0.5); LYMPH# 1.36 X1000 (1.2-3.4); LYMPH% 10.5 % (20.5-51.1); MCH 26.1 PG (27-31); MCHC 30.4 g/dL (33-37); MCV 85.8 FL (81-99); MONO# 0.82 X1000 (0.11-0.59); MONO% 6.3 % (1.7-9.3); MPV 10.3 FL (7.4-10.4); NEUT# 10.42 X1000 (1.4-6.5); NEUT% 80.2 % (42.2-75.2); PLT 261 X1000 (130-400); RDW 14.5 % (11.5-14.5); WBC 12.99 X1000 (4.8-10.8)
--- NOTE | 2019-09-02 07:16 | GENERAL SURGERY PROGRESS NOTE ---
DATE: 09/02/2019 SUBJECTIVE: Patient seems to be doing about the same. OBJECTIVE: Vital Signs: Patient is currently afebrile. Her vital signs are stable. General: No acute distress. Cardiovascular: Regular rate and rhythm. Lungs: Grossly clear. Abdomen: Soft. No real significant tenderness. Extremities: Moves all extremities. Neurologic: Grossly intact. Skin: No signs of jaundice. Vascular: All extremities perfused. LABORATORY: Reviewed from yesterday, white blood cell count is 11 which is slightly up, hematocrit 27. Remainder of labs reviewed. Clostridium difficile negative. ASSESSMENT AND PLAN: A 64-year-old female with intra-abdominal abscess. Intra-abdominal abscess. At this time the etiology from diverticulitis versus tubo-ovarian abscess is still unknown. At this point agree with IV antibiotics. She will likely need exploration in the middle of the week. We will try to get some more days out of the Plavix out of her system to decrease bleeding, especially now that her hematocrit has gone down to 27. We will continue to monitor her diarrhea but C diff has been negative. cc: Simon Viera MD
[2019-09-02 07:18] LABS: AGAP 3; ALB/GLOB RATIO 0.6; ALBUMIN 2.1 g/dL (3.5-5.0); ALKALINE PHOSPHATASE 93 U/L (32-104); BUN 8 mg/dL (8-22); CALCIUM 8.8 mg/dL (8.8-10.2); CHLORIDE 103 mmol/L (98-107); COSMO 274; CREATININE 0.7 mg/dL (0.5-0.9); ESTIMATED GFR > 60; GLUCOSE 103 mg/dL (70-104); GOT 15 U/L (10-30); GPT 9 U/L (10-36); MAGNESIUM 1.9 mg/dL (1.5-2.7); POTASSIUM 3.6 mmol/L (3.5-5.1); SODIUM 138 mmol/L (136-145); TCO2 32 mmol/L (25-35); TOTAL BILIRUBIN 0.18 mg/dL (0.20-1.00); TOTAL PROTEIN 5.9 g/dL (6.3-8.3)
[2019-09-02] MEDS: TYLENOL PO PRN (11:21)
[2019-09-02] MEDS ORDERED: IMODIUM PO ONE (12:50)
[2019-09-02] MEDS ORDERED: IMODIUM PO PRN (12:52)
[2019-09-02] MEDS: LOVENOX SUBQ SCH (14:47)
--- NOTE | 2019-09-02 16:52 | INFECTIOUS DISEASE PROGRESS NO ---
DATE: 09/02/2019 PRESENT ILLNESS: The patient has diverticulitis with an associated pelvic abscess. She was on IV Rocephin and p.o. Flagyl at home, but she had fever and she was readmitted to the hospital. She started having diarrhea. Stool sent for Clostridium difficile toxin and antigen were both negative. MEDICATIONS: The patient is on Zosyn. PHYSICAL EXAMINATION: Vital Signs: Temperature is 98.7 degrees, pulse 75, respirations 18, blood pressure is 152/65. General: This is a somewhat ill-appearing, elderly female. She is in no acute distress, but she is complaining of abdominal cramping. Head, eyes, ears, nose, and throat: She can hear my spoken words and see near objects. I did not notice any white patches in her mouth. Neck: No stiffness. Lungs: Clear to auscultation. Cardiovascular: Heart rate is regular. Abdomen: Soft. It was not tender to light palpation. Neurologic: Patient is alert. She can move her extremities. There is no tremor. Integument: No rash. Extremities: The patient has a PICC in her left arm. The site is not erythematous or purulent. LAB AND X-RAY: The patient's CBC shows a white count of 12,990, hemoglobin 9.4, and platelet count 261,000. Creatinine is 0.7. GFR is greater than 60. Liver function studies are normal. Stool for Clostridium difficile toxin and antigen is negative. Blood and urine cultures are negative. ASSESSMENT AND PLAN: I have ordered Imodium for the patient and also ordered a stool culture. COMORBIDITIES: The patient has had a stroke. She has severe abdominal aortic atherosclerosis and a small intra-abdominal aortic aneurysm. The patient did have diverticulitis which most likely is the cause of her abscess. cc: Francisco J Meyer MD
--- NOTE | 2019-09-02 21:21 | PROGRESS NOTE ---
DATE: 09/02/2019 INTERVAL HISTORY: Ms. Stiles has been having multiple episodes of diarrhea. However, her C difficile testing was negative. She was also given a dose of loperamide by Infectious Disease. She states her night was miserable because of diarrhea, but her remaining day has been better. SUBJECTIVE: She currently denies any chest pain, shortness of breath, nausea, vomiting, abdominal pain. Her last bowel movement was in the middle of the day. She states that she is likely undergoing surgery for her abscess tomorrow. CURRENT VITALS: Temperature of 98.5 degrees. She did have episode of fever of 100.5 yesterday afternoon. Pulse 70, respiratory rate 24, blood pressure 130/68, saturating 98% on room air. PHYSICAL EXAMINATION: General: She is not in acute distress. Oral cavity: Moist. Lungs: Air entry bilaterally equal. No wheeze, rhonchi, or crackles. Cardiovascular: S1, S2 normal. No murmur, rub, or gallop. Abdomen: Soft, nontender. Active bowel sounds. Extremities: Mild bilateral lower extremity edema. Neurologic: She is alert and oriented x3. LABS: Suggestive of leukocytosis, normocytic anemia, normal platelet count, normal electrolytes. MICROBIOLOGY: No positive data so far. IMAGING: No new imaging. ASSESSMENT AND PLAN: 1. Suspected sepsis from left-sided pelvic abscess. It could be an abscess associated with diverticulitis versus tuboovarian abscess. Continue intravenous Zosyn. Surgical team is planning surgical exploration and abscess evacuation, likely on 09/03/2019. Blood culture did not have any growth. 2. History of cerebrovascular accident in July 2018. 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 I will keep her on enoxaparin for deep venous thrombosis prophylaxis, and hold Plavix considering need for surgical exploration in the next 24 to 48 hours. She may need resumption of it postoperatively. 3. History of hypothyroidism, essential hypertension, currently appears to be stable. Continue home levothyroxine. DISPOSITION: I will continue to monitor patient on surgical floor. In summary, Ms. Stiles was initially admitted inside the hospital between 08/25/2019 and 08/27/2019, and was diagnosed to have left-sided pelvic abscess leading to sepsis. She was started on intravenous antibiotics, but she was a little apprehensive to undergo any surgery, so it was decided to discharge her on intravenous antibiotics through PICC line and have an outpatient repeat CT scan 2 weeks later. However, she presented back on 08/31/2019, with chief complaints of nausea, vomiting, recurrent fever of 103 degrees Fahrenheit, and this time her antibiotics were changed from intravenous ceftriaxone to intravenous Zosyn, and surgical team was reconsulted. There are plans being made for surgical exploration. Previously, looking at the CAT scan, it has been difficult to assess if her pelvic abscess is coming from diverticulitis or tuboovarian abscess. cc: Luis Angel Ray MD
[2019-09-03] MEDS: ZOSYN 3.375 GM in NS 50 ML IV SCH ×4 (03:03→21:57)
[2019-09-03] MEDS: PRILOSEC PO SCH (06:08)
[2019-09-03] MEDS: SYNTHROID PO SCH (06:09)
[2019-09-03 08:15] LABS: AGAP 13; BUN 7 mg/dL (8-22); CALCIUM 8.4 mg/dL (8.8-10.2); CHLORIDE 107 mmol/L (98-107); COSMO 279; CREATININE 0.6 mg/dL (0.5-0.9); ESTIMATED GFR > 60; GLUCOSE 86 mg/dL (70-104); POTASSIUM 3.7 mmol/L (3.5-5.1); SODIUM 141 mmol/L (136-145); TCO2 21 mmol/L (25-35)
[2019-09-03] MEDS ORDERED: SENSORCAINE-MPF 0.5%/EPI 1:200,000 ONE (09:02)
[2019-09-03 10:12] LABS: URINE SOURCE CATH
[2019-09-03 10:19] LABS: BILIRUBIN URINE NEGATIVE (NEGATIVE); BLOOD URINE NEGATIVE (NEGATIVE); COLOR YELLOW; GLUCOSE URINE NEGATIVE (NEGATIVE); KETONE URINE NEGATIVE (NEGATIVE); LEUKOCYTES URINE NEGATIVE (NEGATIVE); NITRITE URINE NEGATIVE (NEGATIVE); PH URINE 6.5; PROTEIN URINE NEGATIVE (NEGATIVE); SP GRAVITY URINE 1.011; TURBIDITY URINE CLEAR (CLEAR); UR EPITHELIAL CELLS <10 /HPF (<10); URINE BACTERIA NEGATIVE /HPF; URINE RBC <10 /HPF (<10); URINE WBC <10 /HPF (<10); UROBILINOGEN URINE NORMAL (NORMAL)
[2019-09-03] MEDS: LR 1,000 ML ONE ×2 (10:24→10:25)
--- NOTE | 2019-09-03 12:44 | GENERAL SURGERY PROGRESS NOTE ---
DATE: 09/03/2019 SUBJECTIVE: Patient doing okay. OBJECTIVE: Vital Signs: Patient is currently afebrile. Her vital signs are stable. General: No acute distress. HEENT: Normocephalic, atraumatic. Pupils equal, round, reactive to light. Mucous membranes moist. Oropharynx benign. Neck: Supple trachea midline. Cardiovascular: Regular rate and rhythm. Lungs: Grossly clear. Abdomen: Soft. Decreased tenderness. Extremities: Moves all extremities. Neurologic: Grossly intact. Skin: No signs of jaundice. Vascular: All extremities perfused. LABORATORY: Reviewed from yesterday. White blood cell count is 12.9, which is up. Hematocrit 30. Platelet count 263,000. Remainder of labs reviewed. ASSESSMENT AND PLAN: A 64-year-old female with intra-abdominal abscess. 1. Intra-abdominal abscess. At this time, the etiology from diverticulitis versus tubular ovarian abscess is still unknown. She is on IV antibiotics. We will plan on surgical intervention today. This is the best day on the schedule we can probably do it. I discussed with the patient the risks, benefits, and alternatives of the procedure risks including but not limited to bleeding, infection, risk of anesthesia, risk of injuring the ureter, bladder, other structures in the pelvis. Also discussed the possibility of a colostomy. She is aware we will proceed with surgery today. We have had several days the Plavix got out of her system. cc: Simon Viera MD
[2019-09-03] MEDS ORDERED: AK-FLUOR ONE (12:56)
[2019-09-03] MEDS: DILAUDID ONE ×2 (13:33→13:37)
[2019-09-03] MEDS ORDERED: DILAUDID PCA VIAL ONE (14:06)
[2019-09-03] MEDS ORDERED: LR 1,000 ML ONE (14:21)
[2019-09-03] MEDS ORDERED: BENADRYL IV PRN (14:45)
[2019-09-03] MEDS ORDERED: NARCAN IV PRN (14:45)
[2019-09-03] MEDS ORDERED: ZOFRAN IV PRN (14:45)
[2019-09-03] MEDS ORDERED: SODIUM CHLORIDE 0.9% INJ PRN (14:45)
[2019-09-03] MEDS ORDERED: PHENERGAN IV PRN (14:45)
[2019-09-03] MEDS ORDERED: DILAUDID-HP 30 MG in NS 27 ML IV PRN (14:45)
[2019-09-03] MEDS: LR 1,000 ML IV SCH ×2 (15:36→21:58)
[2019-09-03] MEDS: LOVENOX SUBQ SCH (16:04)
--- NOTE | 2019-09-03 21:05 | OPERATIVE NOTE ---
PROCEDURE DATE: 09/03/2019 PREOPERATIVE DIAGNOSIS: Perforated diverticulitis with abscess. POSTOPERATIVE DIAGNOSIS: Perforated diverticulitis with abscess. PROCEDURE: 1. Diagnostic laparoscopy converted to exploratory laparotomy. 2. Open sigmoid resection with end-colostomy (Omari procedure). 3. Ileocecectomy and resection of small bowel. SURGEON: Simon Viera MD. GLUELINE WORKER: Obinna Espinoza MD. Dr. Espinoza assisted with the entirety of the case. His presence was crucial to the completion of the case. FINDINGS: Diverticular abscess with inflammatory changes with terminal ileum involved with the sigmoid colon up against the right pelvic wall. COMPLICATIONS: None at the time of this dictation. ESTIMATED BLOOD LOSS: 100 mL SPECIMENS REMOVED: Sigmoid, terminal ileum and terminal ileum anastomosis. BRIEF HISTORY: A 64-year-old female with diverticulitis. It was felt that she needed a resection. She had been treated with antibiotics and had failed outpatient management with IV antibiotics. It was felt that she would need a resection. The risks, benefits, and alternatives were discussed. All questions were answered. DESCRIPTION OF PROCEDURE: After informed consent was obtained, the patient was brought to the operative theatre, transferred to the operating table and placed in supine position. General endotracheal anesthesia was then performed without complication. A formal time-out was then performed confirming patient, date and procedure, all in agreement. At that time, attention was turned to the abdomen. We initially placed a 5 mm trocar using Optiview technique infraumbilically and connected insufflation. Pneumoperitoneum was achieved. We placed 2 more trocars, both 5 mm, both lateral, on the left side. Using these, we investigated the abdomen. There were dense adhesions. We bluntly dissected down the pelvis. We encountered purulence. I could not safely see everything laparoscopically despite multiple positions so we elected to convert to an open procedure. We made a standard midline incision in the lower aspect, encountered the abdomen. There were dense inflammatory changes with the sigmoid colon. It was stuck up against the lateral wall on the right side. Using mostly blunt dissection, we were able to free it up. It connected kind of up against where the ureter should be, but I could not easily identify the ureter, but I did not see any blood in the urine throughout the entirety of the case. Again, the anatomy was very difficult. The terminal ileum was stuck intimately down to this area and was scarred significantly and was strictured down that had to be removed. We elected do a small-bowel resection initially near the terminal ileum. We then did a hand-sewn anastomosis. We then turned our attention to mobilizing the colon. We mobilized along the descending colon to free it up completely. We then made a window in the mesentery down to the rectosigmoid junction the sigmoid, fired a staple across. We then transected down the sigmoid colon, which was inflamed. We could not go all the way down past the inflammation because it was too inflamed. We took a stapler across the rectum and left the rectal stump. We placed 2 Prolene stitches on either corner in case we wanted to identify it later at the time we were going to reconnect her in the future. We then turned our attention back to the initial small-bowel resection anastomosis. It was ischemic. We put a Doppler in, did a Wood lamp, and it did not seem like it was getting enough blood flow. This is likely because to mobilize it, we had to free it up, and there was likely some degree of compromise of the bowel vasculature. We elected do resect this anastomosis and do an ileocecectomy. We resected all the way down to the ileocecal valve and at the anastomosis and did a [id number] functional end-to-end anastomosis with the terminal ileum to the cecum. We oversewed the common channel with the suture. It was patent. We irrigated out the abdomen. We placed a drain down from the right lower quadrant down to the pelvis to the rectal stump to protect it in case it had any issues. We then made a place for colostomy. We mobilized the colon completely, made a window in the fascia 2 fingerbreadths in width, brought out the colon through this. We did not twist it. It was in good position. We irrigated out the abdomen until suction fluid was clear. We then closed the fascia with a running loop PDS started at either side and then stapled to the skin. We then matured the ostomy. The patient tolerated the procedure well and was transferred back to the recovery room. cc: Simon Viera MD
--- NOTE | 2019-09-03 21:13 | PROGRESS NOTE ---
DATE: 09/03/2019 SUBJECTIVE: The patient underwent resection today. She is resting comfortably. OBJECTIVE: Vital signs: Temperature 98.1 degrees, blood pressure 117/99, heart rate 65, respirations 18, O2 saturation 99% on 2 L nasal cannula. General: This is an elderly female lying in bed in no acute distress. Heart: S1, S2 normal. Regular rate and rhythm. Lungs: Clear to auscultation bilaterally. Abdomen: Positive bowel sounds. Soft. Extremities: No edema. No cyanosis. Neurologic: The patient is alert and oriented x3. LABS: Sodium 141, BUN 7, creatinine 0.6, glucose 86. ASSESSMENT AND PLAN: 1. Intra-abdominal abscess status post extensive bowel resection. The patient is on antibiotic therapy. Cultures are pending from the procedure. Further management as per the general surgeon. 2. Hypothyroidism. We will switch the patient to IV Synthroid. 3. Deep vein thrombosis prophylaxis. Continue on Lovenox. cc: Asia Pugh MD MTDD
[2019-09-04] MEDS: ZOFRAN IV PRN (02:14)
[2019-09-04] MEDS: ZOSYN 3.375 GM in NS 50 ML IV SCH ×4 (03:47→20:04)
[2019-09-04 07:01] LABS: BASO# 0.02 X1000 (0.0-0.2); BASO% 0.2 % (0.0-0.8); EOS# 0.01 X1000 (0.0-0.7); EOS% 0.1 % (0.0-10.0); HEMATOCRIT 31.5 % (37.0-47.0); HEMOGLOBIN 9.5 g/dL (12.0-16.0); IMM GRAN# 0.11 X1000 (0.0-0.04); IMM GRAN% 0.8 % (0.0-0.5); LYMPH# 1.44 X1000 (1.2-3.4); LYMPH% 10.8 % (20.5-51.1); MCH 26.2 PG (27-31); MCHC 30.2 g/dL (33-37); MCV 86.8 FL (81-99); MONO% 8.3 % (1.7-9.3); MPV 10.4 FL (7.4-10.4); NEUT# 10.61 X1000 (1.4-6.5); NEUT% 79.8 % (42.2-75.2); PLT 285 X1000 (130-400); RBC 3.63 XMIL (4.2-5.4); RDW 14.9 % (11.5-14.5); WBC 13.29 X1000 (4.8-10.8)
[2019-09-04] MEDS: SYNTHROID IV SCH (07:07)
[2019-09-04] MEDS: SODIUM CHLORIDE 0.9% INJ SCH (07:07)
[2019-09-04] MEDS: PROTONIX IV SCH (07:07)
[2019-09-04] MEDS: SODIUM CHLORIDE 0.9% INJ PRN (07:08)
[2019-09-04 07:44] LABS: AGAP 10; BUN 8 mg/dL (8-22); CALCIUM 7.9 mg/dL (8.8-10.2); CHLORIDE 108 mmol/L (98-107); COSMO 286; CREATININE 0.8 mg/dL (0.5-0.9); ESTIMATED GFR > 60; GLUCOSE 111 mg/dL (70-104); MAGNESIUM 1.8 mg/dL (1.5-2.7); POTASSIUM 3.9 mmol/L (3.5-5.1); SODIUM 144 mmol/L (136-145); TCO2 26 mmol/L (25-35)
[2019-09-04] MEDS: PRILOSEC PO SCH (08:05)
[2019-09-04] MEDS: LR 1,000 ML IV SCH ×2 (08:05→12:19)
[2019-09-04] MEDS: PERIDEX MT SCH ×2 (09:26→20:04)
--- NOTE | 2019-09-04 12:33 | GENERAL SURGERY PROGRESS NOTE ---
DATE: 09/04/2019 SUBJECTIVE: The patient seems to be doing okay. She did not use her [employer] much. OBJECTIVE: Vital Signs: The patient is currently afebrile. Her vital signs are stable. General: No acute distress. Cardiovascular: Regular rate and rhythm. Lungs: Grossly clear. Abdomen: Soft. Appropriately tender. OFE drain in place. Ostomy appears viable at this point, but no real output. ASSESSMENT AND PLAN: A 64-year-old female, status post exploratory laparotomy, Omari's procedure and ileocecectomy. The patient seems to be doing well from a postoperative state. We will continue to monitor. We will wait for return of bowel function. We will continue intravenous antibiotics. We will continue supportive care. We will keep the nasogastric tube in place. We will have enterostomal therapy see the patient. We do have her on Lovenox. cc: Simon Viera MD
--- NOTE | 2019-09-04 14:09 | INFECTIOUS DISEASE PROGRESS NO ---
DATE: 09/04/2019 PRESENT ILLNESS: The patient is status post bowel resection and formation of an ostomy for the patient's diverticulitis with an associated abscess. The abscess has been drained as well. MEDICATIONS: The patient is on Zosyn. PHYSICAL EXAMINATION: Vital Signs: Temperature is 98.8 degrees, pulse 82, respirations 17, blood pressure 115/63. General: This is an ill-appearing, elderly female. She is in no acute distress. She is not complaining of any pain at this time. Head, Eyes, Ears, Nose, and Throat: She can hear my spoken words and see near objects. I did not see any drainage from the nose or ears. She did not have any white coating of her tongue. The patient has a nasogastric tube in place. Neck: No pain. Lungs: Clear to auscultation. Cardiovascular: Heart rate is regular. Abdomen: Soft and tender to light palpation. There is an ostomy present and a midline incision is present, as is a drain coming from the abdomen. Neurologic: The patient is alert. She can move her extremities. She talks in a coherent fashion. Integument: No rash. LAB AND X-RAY: The patient's CBC shows a white count of 13,290, hemoglobin 9.5, platelet count of 285,000. Creatinine is 0.8. GFR is greater than 60. Urinalysis shows no white cells or bacteria. An abdominal culture is pending. ASSESSMENT AND PLAN: The patient has had a bowel resection and drainage of an intra-abdominal abscess. I agree with treating the patient with Zosyn pending culture results from surgery. COMORBIDITIES: The patient has had a stroke. She has abdominal aortic atherosclerosis and a small intra-abdominal aortic aneurysm. The patient did have diverticulitis with perforation and abscess formation. cc: Francisco J Meyer MD
[2019-09-04] MEDS: LOVENOX SUBQ SCH (14:45)
--- NOTE | 2019-09-04 20:14 | PROGRESS NOTE ---
DATE: 09/04/2019 SUBJECTIVE: The patient is resting comfortably. She complains of abdominal discomfort and bladder spasms. OBJECTIVE: Vital Signs: Temperature 98.2 degrees, blood pressure 118/60, heart rate 83, respirations 18, O2 saturation 95% on 1 L nasal cannula. General: This is a morbidly obese female, lying in bed, in no acute distress. Heart: S1 and S2 normal. Regular rate and rhythm. Lungs: Equal air entry bilaterally. No wheezing. No rales. Abdomen: Positive bowel sounds. Soft, nontender. Extremities: No edema, no cyanosis. Neurologic: The patient is alert and oriented x3. LABS: White blood cell count 13, hemoglobin 9.5, hematocrit 31, platelets 285,000. Sodium 144, potassium 3.9, chloride 108, CO2 of 26, BUN 111, magnesium 1.8. ASSESSMENT AND PLAN: 1. Intraabdominal abscess status post exploratory laparotomy with open sigmoid resection with end-colostomy and small bowel resection. Management as per the general surgeon. The patient is on IV antibiotics under the direction of . 2. History of stroke. Aware. 3. Morbid obesity. Aware. 4. Hypothyroidism. Continue on Synthroid. 5. Gastrointestinal prophylaxis. Continue on IV Protonix. 6. Deep vein thrombosis prophylaxis. Continue on Lovenox. cc: Asia Pugh MD MTDD
[2019-09-05] MEDS: ZOSYN 3.375 GM in NS 50 ML IV SCH ×2 (02:09→09:11)
[2019-09-05] MEDS: SYNTHROID IV SCH ×2 (05:58→07:37)
[2019-09-05] MEDS: PROTONIX IV SCH ×2 (05:58→07:37)
[2019-09-05] MEDS: SODIUM CHLORIDE 0.9% INJ SCH (05:58)
[2019-09-05] MEDS: SODIUM CHLORIDE 0.9% INJ PRN (05:59)
[2019-09-05] MEDS: PERIDEX MT SCH ×3 (09:11→20:07)
[2019-09-05] MEDS: LR 1,000 ML IV SCH ×3 (09:15→19:58)
--- NOTE | 2019-09-05 11:39 | GENERAL SURGERY PROGRESS NOTE ---
DATE: 09/05/2019 SUBJECTIVE: Patient seems to be doing a little bit better. OBJECTIVE: Vital Signs: The patient is currently afebrile. Her vital signs are stable. General Examination: No acute distress. Cardiovascular: Regular rate and rhythm. Lungs: Grossly clear. Abdomen: Soft, appropriately tender. Ostomy appears viable. OFE drain in place with serosanguineous output. Laboratory: Reviewed from yesterday. ASSESSMENT AND PLAN: A 64-year-old female, currently postoperative day #2 from exploratory laparotomy, Omari's procedure, and ileocecectomy. Postoperative state. At this time, the patient seems to be doing okay. We will continue current treatment. Await return of bowel function. We will keep the nasogastric tube and Clay-Bryan drain in place. We will hopefully try to get the patient up and mobilize him a little bit more today. cc: Simon Viera MD
--- NOTE | 2019-09-05 12:21 | PROGRESS NOTE ---
DATE: 09/05/2019 SUBJECTIVE: The patient is resting comfortably. She states that she has had less abdominal discomfort. She reports not getting out of bed since surgery. OBJECTIVE: Vital Signs: Blood pressure is 125/57, with a heart rate of 82, respirations 18, temperature 97.7 degrees oral, with O2 saturations that are 97% on 1 L nasal cannula. Cardiovascular: Regular rate and rhythm. S1 and S2 appreciated. Extremities: She has generalized lower extremity edema. Calves are nontender, with peripheral pulses palpable x4 extremities. Pulmonary: Breath sounds are clear with no increased work of breathing noted. Chest rises and falls symmetric with respiration. Chest wall is nontender to palpation. Gastrointestinal: Abdomen is soft. She does have a little tenderness just at the area of her incision. Nontender elsewhere. She is nondistended, with bowel sounds in all 4 quadrants. Ostomy is in place. It is intact. It is moist, red, with no output at this point. She did have flatus noted in the bag. Neurologic: She is alert and oriented x3. Skin: Warm and dry. There is a midline abdominal dressing intact. LABORATORY DATA: There are no new labs today. ASSESSMENT AND PLAN: 1. Intra-abdominal abscess, status post exploratory laparotomy with open sigmoid resection with end colostomy and small-bowel resection. General Surgery is following. 2. Hypothyroidism. Will continue on her Synthroid. 3. Morbid obesity. Aware. 4. History of stroke. Aware. 5. Gastrointestinal prophylaxis. Continue intravenous Protonix. 6. Deep vein thrombosis prophylaxis. Continue Lovenox. Will order for the patient to be up in the chair 3 times a day. Antibiotics will be continued per Dr. Meyer. Dictated by CHELSEY Espana for Asia Pugh MD cc: CHELSEY Espana MD
[2019-09-05] MEDS: LOVENOX SUBQ SCH (15:24)
[2019-09-05] MEDS: MERREM 2 GM in NS 50 ML IV SCH ×3 (15:24→22:14)
--- NOTE | 2019-09-05 21:29 | INFECTIOUS DISEASE PROGRESS NO ---
DATE: 09/05/2019 PRESENT ILLNESS: Ms. Stiles is status post bowel resection with ostomy for diverticulitis and an associated abscess. So far, there have been no organisms isolated. The patient does have a leukocytosis. MEDICATIONS: She has been receiving Zosyn 3.375 g IV every 6 hours for the last 5 days. OBJECTIVE: Vital signs: Temperature is 98.4 degrees, pulse rate 82, respiratory rate 17, blood pressure 123/57, O2 saturation is 94% on 2 L nasal cannula. General: This is an obese, critically ill-appearing elderly female. She is lying in the bed currently in no acute distress. HEENT: Atraumatic, normocephalic. Oral mucous membranes are pink and dry. There is an NG tube to low intermittent wall suction. Conjunctivae are pale. Neck is supple. Trachea is midline. Cardiovascular: Heart rate and rhythm are regular. Normal sinus rhythm on the monitor. Respiratory: Lung sounds are clear in the upper lobes. Diminished in the mid and bases. No work of breathing noted. Abdomen: Soft and tender, with active bowel sounds. There is a midline abdominal incision, a OFE drain and an ostomy. Neurologic: She is awake, alert and oriented, and able to move around in the bed with assistance. Integumentary: Skin is warm and dry. There is a PICC line in place to the left upper arm. That site is without edema, erythema or drainage. LABS & IMAGING: Today her white count is 13.29, hemoglobin 9.5, platelet count 285,000. Creatinine is 0.8. Estimated GFR is greater than 60. So far, on the preliminary reports there is no growth to the abdominal cultures. No imaging reports today. ASSESSMENT AND PLAN: Ms. Stiles is postoperative bowel resection for diverticulitis with an associated abscess. At this point, there has been no growth on the preliminary reports of cultures to her abdomen. She has been on Zosyn, with a gradual increase in her leukocytosis, so we will stop the Zosyn at this time. Instead we will give her meropenem 2 g intravenous every 8 hours and recheck her labs in the morning. These plans have been discussed with and recommended by Dr. Meyer. COMORBIDITIES: for Ms. Stiles include that she is elderly and obese, with a history of cerebrovascular accident. Dictated by CHELSEY Merritt for Francisco J Meyer MD cc: Francisco J Meyer MD [facility]
[2019-09-05] MEDS ORDERED: CHLORASEPTIC SPRAY MT PRN (21:58)
[2019-09-06] MEDS: MERREM 2 GM in NS 50 ML IV SCH (05:58)
[2019-09-06] MEDS: PROTONIX IV SCH (05:59)
[2019-09-06] MEDS: SYNTHROID IV SCH (05:59)
[2019-09-06 06:51] LABS: BASO# 0.04 X1000 (0.0-0.2); BASO% 0.3 % (0.0-0.8); EOS# 0.15 X1000 (0.0-0.7); EOS% 1.3 % (0.0-10.0); HEMATOCRIT 28.5 % (37.0-47.0); HEMOGLOBIN 8.3 g/dL (12.0-16.0); IMM GRAN# 0.23 X1000 (0.0-0.04); LYMPH% 14.7 % (20.5-51.1); MCH 26.1 PG (27-31); MCHC 29.1 g/dL (33-37); MCV 89.6 FL (81-99); MONO# 0.82 X1000 (0.11-0.59); MONO% 7.1 % (1.7-9.3); MPV 10.4 FL (7.4-10.4); NEUT% 74.6 % (42.2-75.2); PLT 348 X1000 (130-400); RBC 3.18 XMIL (4.2-5.4); RDW 15.4 % (11.5-14.5); WBC 11.54 X1000 (4.8-10.8)
[2019-09-06 07:23] LABS: CALCIUM 8.4 mg/dL (8.8-10.2); MAGNESIUM 2.1 mg/dL (1.5-2.7); POTASSIUM 3.7 mmol/L (3.5-5.1)
[2019-09-06] MEDS: PERIDEX MT SCH ×2 (09:42→20:23)
[2019-09-06] MEDS: D5W 1,000 ML IV SCH ×2 (09:43→20:25)
--- NOTE | 2019-09-06 15:17 | GENERAL SURGERY PROGRESS NOTE ---
DATE: 09/06/2019 SUBJECTIVE: Patient seems to be doing okay, but she is still having a significant amount of NG tube output. OBJECTIVE: Vital Signs: Patient is currently afebrile. Her vital signs are stable. General: No acute distress. Cardiovascular: Regular rate and rhythm. Lungs: Grossly clear. Abdomen: Soft. Hypoactive bowel sounds. OFE drain in place with serosanguineous output. Ostomy appears viable with no real output. NG tube in place with over 2 L still recorded out. ASSESSMENT/PLAN: A 64-year-old female currently postoperative day #3 from exploratory laparotomy and Omari's procedure, and ileocecectomy. Postoperative state at this time seems to be doing okay. We are just awaiting definitive return of bowel function. Keep the NG tube in place. We will get rid of her Farias catheter, and mobilize her today. cc: Simon Viera MD
[2019-09-06] MEDS: LOVENOX SUBQ SCH (16:36)
[2019-09-06] MEDS: MERREM 2 GM in NS 100 ML IV SCH (17:24)
[2019-09-06] MEDS ORDERED: MERREM 2 GM in NS 50 ML IV SCH (18:00)
[2019-09-07] MEDS: MERREM 2 GM in NS 100 ML IV SCH ×3 (01:38→18:28)
--- NOTE | 2019-09-07 04:34 | INFECTIOUS DISEASE PROGRESS NO ---
DATE: 09/06/2019 PRESENT ILLNESS: The patient is status post bowel resection and formation of a ostomy for diverticulitis and an associated abscess. MEDICATIONS: The patient is on meropenem 2 g IV every 8 hours. Some of the side effects of the antibiotic, including rash, diarrhea and seizures, have been explained the patient, who agrees with treatment. PHYSICAL EXAMINATION: Vital signs: Temperature is 98.4 degrees, pulse 86, respirations 16, blood pressure is 149/64. General: This is a somewhat ill-appearing, elderly female. She is in no acute distress. Head/eyes/ears/nose/throat: She can hear my spoken words and see near objects. She has a nasogastric tube in place. She does not have any white coating of her tongue. Neck: No pain with movement. Lungs: Clear to auscultation. Cardiovascular: Regular heart rate. Abdomen: Soft to light palpations. There is no bowel sounds. The patient's incision and ostomy and OFE drain are intact. Neurologic: The patient is alert. She can move her extremities. She is coherent. There is no tremor. LAB AND X-RAY: There is no new radiographic finding for today. The patient's CBC shows a white count of 11,540, hemoglobin 8.3, platelet count 348,000. Creatinine is 1, GFR is 56. All the abdominal cultures remain negative. ASSESSMENT AND PLAN: The patient is postop bowel resection for diverticulitis with an associated abscess. An ostomy has been formed. The abdominal drain is still in place. The plan is to continue meropenem. COMORBIDITIES: The patient is elderly and she is obese. She has a history of a stroke. cc: Francisco J Meyer MD
[2019-09-07] MEDS: PROTONIX IV SCH ×2 (05:23→06:04)
[2019-09-07] MEDS: SYNTHROID IV SCH ×2 (05:23→06:03)
[2019-09-07] MEDS: D5W 1,000 ML IV SCH ×2 (05:42→17:11)
--- NOTE | 2019-09-07 07:41 | PROGRESS NOTE ---
DATE: 09/06/2019 SUBJECTIVE: The patient is sitting up in a chair. She states that her abdominal pain is slowly improving. OBJECTIVE: Vital Signs: Temperature 98.2 degrees, blood pressure 166/72, heart rate 80, respirations 18, O2 saturation 98% on room air. General: This is an overweight female sitting in a chair in no acute distress. Heart: S1, S2 normal. Regular rate and rhythm. Lungs: Equal air entry bilaterally. No wheezing. No rales. Abdomen: Positive bowel sounds. Soft. Extremities: 1+ edema in the lower extremities. Neurologic: The patient is alert and oriented x4. LABS: Sodium 151, potassium 3.7, chloride 112, CO2 28. BUN 13, creatinine 1. White blood cell count 11, hemoglobin 8.3, hematocrit 28, platelets 348. ASSESSMENT AND PLAN: 1. Intra-abdominal abscess, status post exploratory laparotomy with open sigmoid resection with end colostomy and small bowel resection. Management as per the general surgeon. 2. Hypernatremia. We will discontinue the lactated Ringer and start the patient on D5W. 3. History of stroke. Aware. 4. Morbid obesity. Aware. 5. Hypothyroidism. Continue on Synthroid. 6. Gastrointestinal prophylaxis. Continue on intravenous Protonix. 7. Deep vein thrombosis prophylaxis. Continue on Lovenox. cc: Asia Pugh MD
[2019-09-07] MEDS: PERIDEX MT SCH ×2 (10:07→21:45)
[2019-09-07 16:02] LABS: AGAP 12; ALBUMIN 2.2 g/dL (3.5-5.0); BUN 5 mg/dL (8-22); CALCIUM 8.1 mg/dL (8.8-10.2); CHLORIDE 101 mmol/L (98-107); COSMO 279; CREATININE 0.6 mg/dL (0.5-0.9); ESTIMATED GFR > 60; GLUCOSE 114 mg/dL (70-104); PHOSPHORUS 1.6 mg/dL (2.7-4.5); POTASSIUM 3.4 mmol/L (3.5-5.1); SODIUM 141 mmol/L (136-145); TCO2 28 mmol/L (25-35)
[2019-09-07] MEDS ORDERED: POTASSIUM PHOSPHATE 40 MMOL in NS 250 ML IV ONE (16:04)
[2019-09-07] MEDS: LOVENOX SUBQ SCH (17:04)
[2019-09-07] MEDS: ZOFRAN IV PRN (17:11)
--- NOTE | 2019-09-08 02:29 | PROGRESS NOTE ---
DATE: 09/07/2019 SUBJECTIVE: The patient is resting comfortably. No acute events noted overnight. OBJECTIVE: Vital signs: Temperature 98.6 degrees, blood pressure 177/69, heart rate 71, respirations 16, O2 saturation 94% on room air. General: This is a chronically ill-appearing female lying in bed, in no acute distress. Heart: S1, S2 normal. Regular rate and rhythm. Lungs: Equal air entry bilaterally. No wheezing. No rales. Abdomen: Positive bowel sounds. Soft, nontender, nondistended. Extremities: 1+ edema. Neuro: The patient is alert and oriented x3. LABS: White blood cell count 11, hemoglobin 8.3, hematocrit 28, platelets 348,000. Sodium 151, potassium 3.7, chloride 112, CO2 of 23, BUN 13, creatinine 1. Glucose 72. ASSESSMENT AND PLAN: 1. Intra-abdominal abscess, status post exploratory laparotomy with open sigmoid resection with end colostomy and small bowel resection. Management as per the general surgeon. 2. Hypernatremia. Continue D5W. 3. Morbid obesity. Aware. 4. Hypothyroidism. Continue on Synthroid. 5. History of stroke. Aware. 6. Gastrointestinal prophylaxis. Continue on Protonix. 7. Deep vein thrombosis prophylaxis. Continue on Lovenox. cc: Asia Pugh MD
[2019-09-08] MEDS: MERREM 2 GM in NS 100 ML IV SCH ×3 (03:00→18:52)
--- NOTE | 2019-09-08 03:18 | GENERAL SURGERY PROGRESS NOTE ---
DATE: 09/07/2019 SUBJECTIVE: The patient is doing well. She denies significant pain, nausea or vomiting. She did get out of bed yesterday. OBJECTIVE: She is afebrile. Vital signs are stable.General: She is awake, alert, oriented x3. No acute distress. Gastrointestinal: Soft, nondistended, appropriately tender. Incisional dressing is clean and dry. Stoma is pink. There is a small amount of flatus and bloody effluent in the bag. She does have good bowel sounds. NG tube output was a 1000 mL yesterday. ASSESSMENT/PLAN: A 64-year-old female status post Omari's procedure, small-bowel resection and ileostomy and partial small-bowel resection. We are awaiting good return of bowel function. We will clamp her NG tube and check the residual, if it is low we will remove it and start clear liquids today. I think she is starting to make some progress. cc: Yossi Barrientos MD
[2019-09-08] MEDS: PROTONIX IV SCH (06:39)
[2019-09-08] MEDS: D5W 1,000 ML IV SCH ×3 (06:40→17:46)
[2019-09-08] MEDS: SYNTHROID IV SCH (06:40)
[2019-09-08 07:14] LABS: HEMOGLOBIN 9.2 g/dL (12.0-16.0); MCH 26.4 PG (27-31); MCHC 30.7 g/dL (33-37); MPV 10.1 FL (7.4-10.4); RBC 3.49 XMIL (4.2-5.4); RDW 14.9 % (11.5-14.5); WBC 7.23 X1000 (4.8-10.8)
[2019-09-08 07:49] LABS: AGAP 12; ALBUMIN 2.3 g/dL (3.5-5.0); BUN 4 mg/dL (8-22); CALCIUM 8.4 mg/dL (8.8-10.2); CHLORIDE 102 mmol/L (98-107); COSMO 278; CREATININE 0.7 mg/dL (0.5-0.9); ESTIMATED GFR > 60; GLUCOSE 96 mg/dL (70-104); PHOSPHORUS 2.1 mg/dL (2.7-4.5); POTASSIUM 3.3 mmol/L (3.5-5.1); SODIUM 141 mmol/L (136-145); TCO2 27 mmol/L (25-35)
[2019-09-08] MEDS ORDERED: POTASSIUM PHOSPHATE 50 MMOL in NS 250 ML IV ONE (07:54)
[2019-09-08] MEDS ORDERED: MAGNESIUM SULFATE 2 GM/S.W.I. 2 GM/50 ML IVPB IV ONE (07:54)
[2019-09-08] MEDS: PERIDEX MT SCH (09:20)
--- NOTE | 2019-09-08 15:10 | GENERAL SURGERY PROGRESS NOTE ---
DATE: 09/08/2019 SUBJECTIVE: The patient is doing well overnight. No nausea or vomiting. Her NG tube was removed yesterday. OBJECTIVE: Vital signs: She is afebrile. Vital signs are stable. General: She is awake, alert, oriented x3. No acute distress. Gastrointestinal: Soft, nondistended. She has bowel sounds. Her stoma is pink and patent with some flatus in the bag. ASSESSMENT/PLAN: A 64-year-old female status post Omari's procedure and small bowel resection. She is improving. She tolerated clear liquids yesterday evening. She is hungry, so we will start her on a soft diet today. cc: Yossi Barrientos MD
[2019-09-08 17:09] LABS: MAGNESIUM 1.9 mg/dL (1.5-2.7); POTASSIUM 4.5 mmol/L (3.5-5.1)
[2019-09-08] MEDS: LOVENOX SUBQ SCH (17:46)
[2019-09-09] MEDS: PERIDEX MT SCH ×4 (01:02→20:48)
[2019-09-09] MEDS: MERREM 2 GM in NS 100 ML IV SCH ×3 (01:02→19:00)
[2019-09-09] MEDS: LR 1,000 ML IV SCH (01:03)
[2019-09-09] MEDS ORDERED: LR 1,000 ML ONE (01:10)
--- NOTE | 2019-09-09 03:39 | PROGRESS NOTE ---
DATE: 09/08/2019 SUBJECTIVE: The patient is resting comfortably in bed. Her diet was advanced today. She is doing well. OBJECTIVE: Vital Signs: Temperature 99 degrees, blood pressure 150/70, heart rate 84, respirations 20, and O2 saturation 95% on room air. General: This is an elderly female lying in bed in no acute distress. Heart: S1, S2 normal. Regular rate and rhythm. Lungs: Clear to auscultation bilaterally. Abdomen: Positive bowel sounds. Soft, nontender, and nondistended. Extremities: 1+ edema in the legs. Neurologic: The patient is alert and oriented x4. LABORATORY: Sodium 141, potassium 4.5, chloride 102, CO2 27, BUN 4, creatinine 0.7, hemoglobin 9.2, hematocrit 30, platelets 428,000, and white blood cell count 7.2. ASSESSMENT AND PLAN: 1. Intra-abdominal abscess, status post exploratory laparotomy with open sigmoid resection with end-colostomy and small bowel resection. Slowly improving. The patient's diet was advanced today. Further management as per the general surgeon. 2. Morbid obesity. Aware. 3. Hypokalemia. We will replace the patient's potassium. 4. Hypophosphatemia. We will replace the patient's phosphorus. 5. Hypothyroidism. Continue on Synthroid. 6. History of stroke. Aware. 7. Gastrointestinal prophylaxis. Continue on Protonix. 8. Deep vein thrombosis prophylaxis. Continue on Lovenox. cc: Asia Pugh MD
[2019-09-09] MEDS ORDERED: TYLENOL PO PRN (06:00)
[2019-09-09] MEDS: SODIUM CHLORIDE 0.9% INJ SCH (06:16)
[2019-09-09] MEDS: PROTONIX IV SCH (06:16)
[2019-09-09] MEDS: SYNTHROID PO SCH (06:17)
[2019-09-09 06:31] LABS: HEMOGLOBIN 9.6 g/dL (12.0-16.0); MCH 26.7 PG (27-31); MCV 86.4 FL (81-99); MPV 10.3 FL (7.4-10.4); RBC 3.59 XMIL (4.2-5.4); RDW 15.4 % (11.5-14.5); WBC 7.72 X1000 (4.8-10.8)
[2019-09-09 06:51] LABS: AGAP 10; ALBUMIN 2.1 g/dL (3.5-5.0); BUN 6 mg/dL (8-22); CALCIUM 7.8 mg/dL (8.8-10.2); CHLORIDE 104 mmol/L (98-107); COSMO 277; CREATININE 0.8 mg/dL (0.5-0.9); ESTIMATED GFR > 60; GLUCOSE 105 mg/dL (70-104); PHOSPHORUS 2.3 mg/dL (2.7-4.5); POTASSIUM 4.1 mmol/L (3.5-5.1); SODIUM 140 mmol/L (136-145); TCO2 26 mmol/L (25-35)
--- NOTE | 2019-09-09 07:29 | GENERAL SURGERY PROGRESS NOTE ---
DATE: 09/09/2019 SUBJECTIVE: Patient seems to be doing okay. She tolerated a regular diet. She really has not had much ostomy output. OBJECTIVE: Vital Signs: Patient is currently with temperature 99.9 degrees. Remainder of vital signs appear stable. General Exam: No acute distress. Cardiovascular: Regular rate and rhythm. Lungs: Grossly clear. Abdomen: Soft, appropriately tender. Bowel sounds auscultated. Ostomy appears viable, but still only weeping. There is some air in the appliance. ASSESSMENT AND PLAN: A 64-year-old female currently postoperative day #6 from exploratory laparotomy, Omari's procedure and ileocecectomy. 1. Postoperative state: At this time, she seems to be doing okay. I have gotten her nasogastric tube out. She has not had definitive return of bowel function. She has had some air out of her appliance. She has good bowel sounds on exam, but we will await return of bowel function. She does have a low-grade fever, so we will need to monitor that. We will make sure she has sequential compression devices SCDs on. She is already on Lovenox. She is still on antibiotics. We will continue to monitor. cc: Simon Viera MD
[2019-09-09] MEDS: ZOFRAN IV PRN (12:26)
[2019-09-09] MEDS: LOVENOX SUBQ SCH (16:05)
--- NOTE | 2019-09-09 18:18 | INFECTIOUS DISEASE PROGRESS NO ---
DATE: 09/09/2019 PRESENT ILLNESS: The patient is status post bowel resection and formation of an ostomy for diverticulitis with an associated abscess. MEDICATIONS: The patient is on meropenem 2 g IV every 8 hours. This is day #3 of treatment with that antibiotic. PHYSICAL EXAMINATION: Vital Signs: Temperature is 98.5 degrees, pulse 100, respirations 18, blood pressure 122/74. General: This is an ill-appearing elderly female. She is in no acute distress. Head/eyes/ears/nose/throat: She can hear my spoken words and see near objects. She does not have any nasal tube in place. She does not have any white patches in her mouth. Neck: No pain with movement. Lungs: Clear to auscultation. Cardiovascular: Heart rate is regular. Abdomen: Soft to light palpation. The patient's incision has a dressing on it. The dressing is intact and a functioning ostomy is in place. There also is a Clay-Bryan drain coming from the abdomen. Neurologic: The patient is alert. She can move her extremities. She did tell me however she is very weak. LAB AND X-RAY: The is no new radiographic study from today. The patient's CBC shows a white count of 7720, hemoglobin 9.6 and platelet count 446,000. Creatinine is 0.8. GFR is greater than 60. ASSESSMENT AND PLAN: The patient as mentioned above is status post bowel resection for diverticulitis with an associated abscess. My plan is to continue meropenem. COMORBIDITIES: The patient is elderly, she is obese and she has had a history of a stroke. cc: Francisco J Meyer MD
--- NOTE | 2019-09-09 20:51 | PROGRESS NOTE ---
DATE: 09/09/2019 SUBJECTIVE: The patient is resting comfortably. She did have a low-grade fever this morning. OBJECTIVE: Vital Signs: Temperature, T-max 99.9 degrees, blood pressure 128/72, heart rate 81, respirations 17, and O2 saturation 95% on room air. General: This is an elderly female lying in bed in no acute distress. Heart: S1, S2 normal. Regular rate and rhythm. Lungs: Clear to auscultation bilaterally. No wheezing. No rales. No rhonchi. Abdomen: Positive bowel sounds. Soft. There is an ostomy in place with some air. Neurologic: The patient is alert and oriented x3. LABORATORY DATA: Sodium 140, potassium 4.1, chloride 104, CO2 of 26, BUN 6, creatinine 0.8, glucose 105, phosphorus 2.3, magnesium 1.8, albumin 2.1. White blood cell count 7.7, hemoglobin 9.6, hematocrit 31, platelets 446,000. ASSESSMENT AND PLAN: 1. Status post exploratory laparotomy with Omari procedure and ileocecectomy and resection of the small bowel secondary to perforated diverticulitis with abscess. Continue to monitor the patient closely for bowel function. The patient is on a gastrointestinal soft diet. General Surgery is following. 2. Morbid obesity. Aware. 3. Hypothyroidism. Continue on Synthroid. 4. History of stroke. Aware. 5. Hypertension. We will restart the Norvasc. 6. Deep vein thrombosis prophylaxis. The patient is on Lovenox. cc: Asia Pugh MD
[2019-09-10] MEDS: MERREM 2 GM in NS 100 ML IV SCH ×3 (01:34→20:05)
[2019-09-10] MEDS: PROTONIX IV SCH (06:07)
[2019-09-10] MEDS: SODIUM CHLORIDE 0.9% INJ SCH (06:07)
[2019-09-10] MEDS: SYNTHROID PO SCH (06:07)
[2019-09-10 07:02] LABS: HEMATOCRIT 31.4 % (37.0-47.0); HEMOGLOBIN 9.5 g/dL (12.0-16.0); MCH 26.5 PG (27-31); MCHC 30.3 g/dL (33-37); MCV 87.7 FL (81-99); MPV 10.4 FL (7.4-10.4); RBC 3.58 XMIL (4.2-5.4); RDW 15.6 % (11.5-14.5); WBC 7.71 X1000 (4.8-10.8)
--- NOTE | 2019-09-10 07:06 | Diag Imaging Result Doc PS360 ---
EXAM: CHEST-PORTABLE 09/10/2019 HISTORY: dyspnea TECHNIQUE: AP portable upright at 0535 COMMENT: There is a PICC line on the left with its tip in the superior vena cava. There is platelike atelectasis in the left lower lobe. Compared to 09/01/2019 there has been no significant change considering differences in inspiration and technique. IMPRESSION: Left lower lobe atelectasis. Electronically signed by Shadi Reyes 09/10/2019 7:03 AM
[2019-09-10 07:24] LABS: AGAP 13; ALBUMIN 2.4 g/dL (3.5-5.0); BUN 10 mg/dL (8-22); CALCIUM 8.5 mg/dL (8.8-10.2); CHLORIDE 102 mmol/L (98-107); COSMO 276; CREATININE 0.8 mg/dL (0.5-0.9); ESTIMATED GFR > 60; GLUCOSE 93 mg/dL (70-104); PHOSPHORUS 2.1 mg/dL (2.7-4.5); POTASSIUM 4.3 mmol/L (3.5-5.1); SODIUM 139 mmol/L (136-145); TCO2 24 mmol/L (25-35)
[2019-09-10] MEDS: PERIDEX MT SCH ×2 (08:37→20:05)
[2019-09-10] MEDS: NORVASC PO SCH (08:37)
[2019-09-10] MEDS: ZOFRAN IV PRN (11:45)
--- NOTE | 2019-09-10 13:52 | GENERAL SURGERY PROGRESS NOTE ---
DATE: 09/10/2019 SUBJECTIVE: Patient seems to be doing okay. She has had some stool in her appliance now. OBJECTIVE: Vital Signs: Patient is currently afebrile. Her vital signs are stable. General: No acute distress. Cardiovascular: Regular rate and rhythm. Lungs: Grossly clear. Abdomen: Soft appropriately tender. OFE drain with minimal output. Ostomy with some stool in it. ASSESSMENT AND PLAN: A 64-year-old female, currently postoperative day #7 for exploratory laparotomy, Omari's procedure, and ileocecectomy. 1. Postoperative state: At this time seems to be doing okay. She has had return of bowel function. She is tolerating a regular diet. 2. We will need to have her still work with enterostomal therapy. 3. We will stop her Dilaudid and keep her on p.o. pain medicine. 4. Hopefully, she will be out to a rehab place in the near future. cc: Simon Viera MD
[2019-09-10] MEDS: LOVENOX SUBQ SCH (15:30)
[2019-09-10] MEDS: LR 1,000 ML IV SCH (15:31)
--- NOTE | 2019-09-10 19:26 | INFECTIOUS DISEASE PROGRESS NO ---
DATE: 09/10/2019 PRESENT ILLNESS: The patient is status post surgery for diverticulitis with an associated abscess. The patient has an ostomy in place as well as a Clay-Bryan drain coming from the abdomen and also she has a lower abdominal incision. MEDICATIONS: The patient is in day #4 of treatment with meropenem. PHYSICAL EXAMINATION: Vital Signs: Temperature is 99.6 degrees, pulse 83, respirations 18, blood pressure is 149/62. General: This is an ill-appearing elderly female. She is though gradually getting better. She is in no acute distress. Head/eyes/ears/nose/throat: She can hear my spoken words and see near objects. She does not have any white patches in her mouth. Neck: No pain with movement. Lungs: Clear to auscultation. Cardiovascular: Heart rate is regular. Abdomen: Soft and not tender to light palpation. As mentioned above, her incision has a dressing on it which is intact. She has a functioning ostomy in place and she also has a Clay-Bryan drain coming from her abdomen. Neurologic: The patient is alert. She is sitting up in a chair today but she is very weak. She carries on a coherent conversation. LAB AND X-RAY: Chest x-ray shows a small amount of left lower lobe atelectasis and it is no change from a prior chest x-ray. CBC shows a white count of 7710, hemoglobin 9.5, and platelet count 443,000. Creatinine is 0.8. GFR is greater than 60. ASSESSMENT AND PLAN: Patient is status post surgery for diverticulitis with an associated abscess. She has had resection of the diverticulitis and creation of the ostomy. The plan is to continue meropenem for now. COMORBIDITIES: The patient is elderly. She is obese and she has had a history of a stroke also. cc: Francisco J Meyer MD
[2019-09-10] MEDS: NORCO-5 PO PRN (21:57)
--- NOTE | 2019-09-10 23:47 | PROGRESS NOTE ---
DATE: 09/10/2019 INTERVAL HISTORY: No acute events overnight. SUBJECTIVE: Ms. Stiles is feeling fine. She denies any chest pain, shortness of breath or cough. She is tolerating diet well. She is having good output through colostomy. She still has an abdominal drain. OBJECTIVE: Vital signs: Afebrile, temperature of 98.3 degrees. Pulse 80, respiratory rate 17, blood pressure 128/58, saturating 95% on room air. On physical examination, not in acute distress. Oral cavity is moist. Air entry bilaterally equal. No wheeze, rhonchi or crackles. S1 normal. No murmur or gallop. Abdomen is soft, nontender. She has a left lower quadrant colostomy with brownish output. She also has a right lower quadrant drain with serosanguineous output. Input and output suggest her urine output is 600 mL. She had 32 mL of the drain. LABORATORY DATA: Her CBC and BMP are unremarkable. DIAGNOSTIC DATA: Chest x-ray today morning suggests left lower lobe atelectasis. ASSESSMENT AND PLAN: 1. Perforated diverticulitis with intra-abdominal abscess, status post exploratory laparotomy with Omari procedure, sigmoid colon resection, ileocecectomy and status post colostomy and intra-abdominal drain on September 03. Continue diet and intravenous meropenem. 2. Morbid obesity. 3. Hypothyroidism. 4. History of cerebrovascular accident. 5. Hypertension. Continue Norvasc. 6. Deep venous thrombosis prophylaxis. Lovenox. 7. Disposition: Continue to manage the patient, considering she has abdominal drain. I will appreciate Surgery recommendations regarding drain removal in future. The patient does not want to go to rehab. She would rather go home, the earliest of which she states could be possible on Monday when her family would be by her side. All of her questions have been answered. cc: Luis Angel Ray MD
[2019-09-11] MEDS: NORCO-5 PO PRN ×2 (05:07→14:51)
[2019-09-11] MEDS: SYNTHROID PO SCH ×2 (05:07→06:17)
[2019-09-11] MEDS: SODIUM CHLORIDE 0.9% INJ SCH (05:07)
[2019-09-11] MEDS: PROTONIX IV SCH ×2 (05:07→06:17)
[2019-09-11] MEDS: MERREM 2 GM in NS 100 ML IV SCH ×3 (05:07→20:54)
[2019-09-11 06:53] LABS: HEMATOCRIT 30.6 % (37.0-47.0); HEMOGLOBIN 9.2 g/dL (12.0-16.0); MCH 26.3 PG (27-31); MCHC 30.1 g/dL (33-37); MCV 87.4 FL (81-99); MPV 10.3 FL (7.4-10.4); RBC 3.5 XMIL (4.2-5.4); RDW 15.3 % (11.5-14.5); WBC 6.64 X1000 (4.8-10.8)
[2019-09-11 07:13] LABS: AGAP 10; ALBUMIN 2.6 g/dL (3.5-5.0); BUN 11 mg/dL (8-22); CALCIUM 8.8 mg/dL (8.8-10.2); CHLORIDE 104 mmol/L (98-107); COSMO 281; CREATININE 0.7 mg/dL (0.5-0.9); ESTIMATED GFR > 60; GLUCOSE 102 mg/dL (70-104); PHOSPHORUS 1.9 mg/dL (2.7-4.5); SODIUM 141 mmol/L (136-145); TCO2 27 mmol/L (25-35)
[2019-09-11] MEDS: PERIDEX MT SCH ×2 (08:10→20:54)
[2019-09-11] MEDS: NORVASC PO SCH (08:10)
--- NOTE | 2019-09-11 10:51 | GENERAL SURGERY PROGRESS NOTE ---
DATE: 09/11/2019 SUBJECTIVE: Patient seems to be doing well. She is having ostomy output. OFE drains had minimal output and so were removed. OBJECTIVE: Vital Signs: Patient is currently afebrile. Her vital signs are stable. General: No acute distress. Cardiovascular: Regular rate and rhythm. Lungs: Grossly clear. Abdomen: Soft, appropriately tender. Incisions healing well. OFE drain removed. Ostomy viable and functioning. ASSESSMENT AND PLAN: A 64-year-old female, currently postoperative day number 8 from exploratory laparotomy, Omari's procedure, and ileocecectomy. Postoperative state: At this time, she is doing well. Disposition at this point as per the hospitalist. We will continue teaching with enterostomal therapy. cc: Simon Viera MD
[2019-09-11] MEDS: LOVENOX SUBQ SCH (14:59)
--- NOTE | 2019-09-11 15:34 | INFECTIOUS DISEASE PROGRESS NO ---
DATE: 09/11/2019 PRESENT ILLNESS: The patient is status post surgery for perforated diverticulitis with an associated abscess. MEDICATIONS: This is the 5th day of treatment with meropenem. PHYSICAL EXAMINATION: Vital Signs: Temperature is 98.8 degrees, pulse 78, respirations 16, blood pressure 153/74. General: This is an ill-appearing elderly female. She is gradually getting better and she is in no acute distress. Head/eyes/ears/nose/throat: She can hear my spoken words and see near objects. She does not have any white coating on her tongue. Neck: No stiffness. Lungs: Clear to auscultation. Cardiovascular: Heart rate is regular. Abdomen: Soft and nontender. The patient has a lower abdominal incision which is intact. The patient has a colostomy which is functioning well. The patient's Clay-Bryan drain has been removed. Neurologic: The patient is alert. She can take a few steps walking, but she is very weak. She is able to sit up in a chair, but when she did she got a little bit nauseated. LAB AND X-RAY: The chest x-ray from yesterday showed left lower lobe with platelike atelectasis. The patient's CBC today shows a white count of 6640, hemoglobin 9.2, and platelet count 450,000. The creatinine is 0.7. GFR is greater than 60. ASSESSMENT AND PLAN: Patient is status post surgery for perforated diverticulitis with an associated abscess. The plan now is to continue meropenem and hopefully the patient will be able to go home soon. COMORBIDITIES: The patient is elderly. She is obese. She has had a history of a stroke. cc: Francisco J Myeer MD
--- NOTE | 2019-09-11 21:00 | PROGRESS NOTE ---
DATE: 09/11/2019 INTERVAL HISTORY: No acute events overnight. Her abdominal drain was removed. The patient denies new complaints. OBJECTIVE: Vital signs: Temperature 98.6 degrees, pulse 79, respiratory rate 18, blood pressure 126/62, saturating 97% on room air. On physical examination, not in acute distress. Oral cavity is moist. Air entry bilaterally equal. No wheeze, rhonchi or crackles. S1, S2 normal. No murmur or gallop. Abdomen is soft, nontender. She has a left lower quadrant colostomy with brownish output. Midline joshua of laparotomy. Her drain has been removed. She is alert oriented x3. LABORATORY DATA: Labs suggestive of no leukocytosis, normocytic anemia, mild thrombocytosis, proper kidney function. No positive microbiological data. DIAGNOSTIC DATA: No new imaging. ASSESSMENT AND PLAN: 1. Perforated diverticulitis with intra-abdominal abscess, status post exploratory laparotomy with Omari procedure, sigmoid colon resection, ileocecectomy and status post colostomy on September 03. Her intra-abdominal drain was removed on September 11. Continue intravenous meropenem. 2. Morbid obesity. 3. Hypothyroidism. 4. History of cerebrovascular accident. 5. Hypertension. 6. Plan: Continue intravenous antibiotics. Continue oral pain medication. Continue deep venous thrombosis prophylaxis. Continue levothyroxine. Plan is to discharge the patient home on home physical therapy, likely on Monday when the patient's family will be able to get education for colostomy. Plan of care discussed with the patient, and her questions have been satisfactorily answered. cc: Luis Angel Ray MD
[2019-09-12] MEDS: PROTONIX IV SCH ×2 (05:05→07:13)
[2019-09-12] MEDS: SODIUM CHLORIDE 0.9% INJ SCH (05:05)
[2019-09-12] MEDS: MERREM 2 GM in NS 100 ML IV SCH ×3 (05:05→20:02)
[2019-09-12] MEDS: SYNTHROID PO SCH ×2 (05:06→07:13)
[2019-09-12] MEDS: PERIDEX MT SCH ×2 (08:39→20:03)
[2019-09-12] MEDS: NORVASC PO SCH (08:39)
[2019-09-12] MEDS: NORCO-5 PO PRN ×2 (09:22→23:51)
--- NOTE | 2019-09-12 10:43 | GENERAL SURGERY PROGRESS NOTE ---
DATE: 09/12/2019 SUBJECTIVE: The patient seems to be doing okay. She seems to be tolerating her diet. She is having ostomy output. She has been hemodynamically stable. Her incisions are healing well. From a surgical point of view, she could be safe to be discharged once okay with hospitalist. cc: Simon Viera MD
[2019-09-12] MEDS: LOVENOX SUBQ SCH (15:34)
--- NOTE | 2019-09-12 18:44 | PROGRESS NOTE ---
DATE: 09/12/2019 INTERVAL HISTORY: No acute events overnight. SUBJECTIVE: Ms. Stiles denies chest pain, shortness of breath, cough, nausea, vomiting, abdominal pain. Her colostomy output has been adequate. OBJECTIVE: Vital Signs: Temperature 98.9 degrees, pulse 80, respiratory rate 18, blood pressure 129/71, saturating 96% on room air. General: On physical examination, obese, not in acute distress. HEENT: Oral cavity is moist. Lungs: Air entry bilaterally equal. No wheeze, rhonchi, or crackles/ Cardiac: S1 and S2 normal. No murmur or gallop. Abdomen: Soft, midline laparotomy scars with joshua. Left lower quadrant colostomy with brownish stool output. Extremities: No lower extremity edema. Neurologic: She is alert and oriented x3. She was able to come out of bed and sit in the chair. LABS AND IMAGING: Suggestive of normocytic anemia. No new labs today. No new imaging. ASSESSMENT AND PLAN: 1. Perforated diverticulitis with intraabdominal abscess, status post exploratory laparotomy with Omari procedure, sigmoid colon resection, ileocecectomy, and status post colostomy. Her intraabdominal drain was removed on September 11. Continue oral diet, and intravenous meropenem should be stopped tomorrow. Continue enoxaparin for deep venous thrombosis prophylaxis, [place] as needed for pain. 2. Morbid obesity. She was initially counseled about weight reduction. 3. Hypothyroidism. Continue home levothyroxine. 4. History of cerebrovascular accident and essential hypertension. I will continue her home Norvasc and would begin her home clopidogrel. 5. Disposition. Planning discharge home tomorrow once the family is around to get colostomy education. Plan of care discussed with her. She is in agreement. cc: Luis Angel Ray MD
--- NOTE | 2019-09-12 19:57 | INFECTIOUS DISEASE PROGRESS NO ---
DATE: 09/12/2019 PRESENT ILLNESS: The patient is status post surgery for diverticulitis with an associated abscess. She is doing quite well at this time. She is not complaining of pain, fever, or chills. MEDICATIONS: Patient is on meropenem 2 g IV every 8 hours. This is day 5 of treatment with meropenem and tomorrow will be postoperative day 10. PHYSICAL EXAMINATION: Vital Signs: Temperature is 98.7 degrees, pulse 86, respirations 16, blood pressure 132/56. General: This is an elderly female. She was not looking very healthy, but in the past few days, she has started to look much better. She is able to walk. She is in no acute distress. Head/eyes/ears/nose/throat: She can hear my spoken words and see near objects. She does not have any white coating on her tongue. Neck: There is no pain when she moves it. Lungs: Clear to auscultation. Cardiovascular: Heart rate is regular. Abdomen: Soft and not tender. The patient's incision is intact. There is no erythema or drainage. The patient's Clay-Bryan drain has been removed. The patient has an ostomy in place and it is functional. Neurologic: The patient is alert. She is able to ambulate. There is no tremor. LAB AND X-RAY: There is no new lab or radiographic study for today. ASSESSMENT AND PLAN: The patient is doing quite well after surgery for perforated diverticulitis with an associated abscess. I have discussed the patient's case with Dr. Viera, Dr. Ray, and the patient. We all agree to stop the patient's meropenem tomorrow and that the patient will be able to go home tomorrow on no antibiotics at all, including oral antibiotics. COMORBIDITIES: She is elderly and she is obese. She also has a history of a stroke. I am signing off the patient's case today. I am going to put tomorrow to discontinue her meropenem and as mentioned above, she will not need any further antibiotics, including no need for oral antibiotics or intravenous antibiotics tomorrow. cc: Francisco J Meyer MD
[2019-09-13] MEDS: MERREM 2 GM in NS 100 ML IV SCH ×2 (05:22→12:43)
[2019-09-13] MEDS: SYNTHROID PO SCH ×2 (05:22→06:41)
[2019-09-13] MEDS: NORVASC PO SCH (08:41)
[2019-09-13] MEDS: PERIDEX MT SCH (08:41)
[2019-09-13] MEDS ORDERED: PLAVIX PO SCH (09:00)
[2019-09-13] MEDS ORDERED: PROTONIX PO SCH (09:00)
--- NOTE | 2019-09-13 10:48 | GENERAL SURGERY PROGRESS NOTE ---
DATE: 09/13/2019 The patient seems to be doing well. She has been hemodynamically stable. She is having ostomy output. She is tolerating her diet at this point. Once she learns ostomy care she can go home. I would like to see her next week in the office. cc: Simon Viera MD
[2019-09-13 11:44] VITALS: BP 151/81
--- NOTE | 2019-09-14 13:24 | DISCHARGE SUMMARY ---
ADMISSION DATE: 08/31/2019 DISCHARGE DATE: 09/13/2019 DISCHARGE DISPOSITION: Home with home care with family. The patient's family is currently getting education about ostomy care. DISCHARGE INSTRUCTIONS: The patient was provided detailed discharge instructions about need for following up with Surgical Team outpatient. All of her questions were answered. DISCHARGE DIAGNOSES: 1. Perforated diverticulitis with intra-abdominal abscess. 2. Essential hypertension. 3. Morbid obesity. 4. Hypothyroidism. 5. History of cerebrovascular accident. 6. Constipation. 7. History of cerebrovascular accident in July 2018. 8. Sepsis due to intrabdominal abscess CONSULTATIONS/PROCEDURES DURING HOSPITAL ADMISSION: 1. General Surgery, Dr. Viera. 2. Infectious Disease Dr. Meyer. The patient underwent diagnostic laparoscopy converted to exploratory laparotomy, open sigmoid resection with end colostomy or Omari procedure, ileal cecectomy and resection of small bowel on 09/03/2019. DISCHARGE MEDICATIONS: 1. Amlodipine 5 mg daily. 2. Clopidogrel 75 mg daily. 3. Levothyroxine 150 mcg daily. 4. Calera 5 one tablet every 6 hours as needed; 15 tablets have been prescribed. VITALS: At time of discharge temperature 98.6 degrees, pulse 89, respiratory rate 17, blood pressure 150/80, saturating 94% on room air. PHYSICAL EXAMINATION: General: Not in acute distress. Oral cavity: Moist. Lungs: Air entry bilaterally equal. No wheeze, rhonchi, crackles. Cardiovascular: S1, S2 normal. No murmur, rub, or gallop. Abdomen: Soft. She has midline joshua for laparotomy. She has left lower quadrant colostomy with brownish stool output. Extremities: She does not have lower extremity edema. Neurologic: She is alert and oriented x3. SIGNIFICANT LABS: At the time of discharge, WBC 6.6, hemoglobin 9.2, platelet 450. Sodium 141, potassium 4, BUN 11, creatinine 0.7, phosphorus 1.9, albumin 2.6. MICROBIOLOGY: Blood culture, urine culture, Clostridium difficile antigen and toxin assay, abscess fluid culture did not have any growth. SIGNIFICANT IMAGING: During hospital admission, the abdomen and pelvis CT on August 31 had multiloculated pelvic abscess with questionable small extraluminal air in the left adnexa, small bowel ileus or partial distal obstruction. The different vision of multiloculated collection from sigmoid colon and uterus was difficult. HOSPITAL COURSE SUMMARY: Ms. Stiles is a 64-year-old lady who initially presented on 08/31/2019 with chief complaints of high-grade fevers, chills, episodes of nausea and vomiting since about 12 hours duration. Ms. Stiles was admitted and discharged 1 week prior to current presentation for the chief complaints of syncope and suspected sepsis. At that time, she was found to have pelvic abscess associated with diverticulitis and suspected left- sided adnexal cyst associated with it. Possible surgical option was offered to her and she was explained that she may need colostomy. However, the patient was a little reluctant, and after discussion with General Surgery, Infectious Disease, it was decided to discharge her on intravenous ceftriaxone through PICC line, and have a repeat CT scan as an outpatient to allow conservative management. However, despite being on intravenous ceftriaxone, she started developing high- grade fevers, chills, nausea, vomiting, and abdominal pain got worse, so she came to the emergency room. In the emergency room, she was found to have a fever of 100.2, which later on had increased to 101.8, pulse of 119. Repeat CT scan had suggested persistent abscess in the pelvis. Her antibiotic coverage was broadened from intravenous ceftriaxone to intravenous Zosyn and general surgical team was reconsulted, and she was admitted for sepsis due to intra-abdominal abscess. On the CAT scan, it was difficult to differentiate the abscess--whether it was originating from diverticulitis or if it was from the tubo-ovarian mass, and she eventually underwent surgery on 09/03/2019 to allow the effects of her home Plavix to wear off. During the surgical exploration, she was found to have diverticular abscess with inflammatory changes within the terminal ileum, involving the sigmoid colon up against the right pelvic wall, and she underwent sigmoid resection with end colostomy and ileocecectomy with resection of small bowel, which she tolerated well. Considering she has had intermittent fever post surgery, her antibiotics were broadened to intravenous meropenem, and she also had intra-abdominal drain post surgery. With intravenous meropenem, her condition improved. Later on, she was started on oral diet and she had adequate output through colostomy, and she did not have any more fever or tachycardia. So, it was decided to discharge her home on home healthcare without any antibiotics. The patient's family needed education on colostomy, so the discharge was delayed by at least 2 to 3 days. Currently, they are receiving colostomy care, and the patient will be discharged home. TIME SPENT: More than 30 minutes of time was spent in discharging this patient. Plan of care was extensively discussed with the patient, and all of her questions have been answered. cc: Luis Angel Ray MD MTDD
== END 2019-09-13 14:11 | disposition home health service (06) | DRG 854 ==
LOC: ED 02:40 → EDIPHOLD 08:06 → SUATTDRO 08:06 → 2N 13:26 → 4N 09-01 14:00
PROVIDERS: ATTEND Internal Medicine
PROC: GE.COLS (2019-09-03 09:22)